=== PATIENT | male | born 1935 | race Caucasian/White ===

== ENCOUNTER 2017-09-24 16:41 | Inpatient (IN) ==
[2017-09-24] MEDS ORDERED: 0.9 % Sodium Chloride 1,000 ML IVC ONE ×2 (16:51→18:26)
--- NOTE | 2017-09-24 17:06 | Emergency Department Note ---
Disposition Clinical Impression: Cough Hypotension Qualifiers: Hypotension type: unspecified hypotension type Qualified Code(s): I95.9 - Hypotension, unspecified Disposition: Still a Patient General Adult HPI - General Stated complaint: fam says altered, cough Time Seen by Provider: 09/24/17 16:42 Source: patient, EMS - History of Present Illness Pain Scale: 0 - Related Data Home Medications Medication Instructions Recorded Confirmed Acetaminophen [Tylenol] 03/07/15 03/07/15 Allopurinol [Zyloprim 100 MG] 03/07/15 03/07/15 Aspirin [Aspirin] 03/07/15 03/07/15 Atorvastatin [Lipitor] 80 mg PO HS 03/07/15 03/07/15 Cyanocobalamin (B-12) [Vitamin B12] 03/07/15 03/07/15 Docusate [Colace] 03/07/15 03/07/15 Enoxaparin [Lovenox] 03/07/15 03/07/15 HYDROcodone/Acet 5-217 mg/10mL 03/07/15 03/07/15 Ipratropium/Albuterol Neb 03/07/15 03/07/15 Levofloxacin [Levaquin] 03/07/15 03/07/15 Metoprolol [Lopressor] 03/07/15 03/07/15 Multivitamin 03/07/15 03/07/15 Potassium Chloride [Potassium 03/07/15 03/07/15 Chloride] Primidone [Mysoline] 03/07/15 03/07/15 Spironolactone [Aldactone] 03/07/15 03/07/15 Previous Rx's Medication Instructions Recorded Albuterol Sulfate [Albuterol 2 puff IH Q4HR #1 hfa.aer.ad 03/27/17 Inhaler] PredniSONE [Deltasone] 40 mg PO QDPC #10 tablet 03/27/17 Allergies Allergy/AdvReac Type Severity Reaction Status Date / Time morphine Allergy Itching Verified 08/05/15 23:25 naproxen [From Aleve] Allergy Itching Verified 08/05/15 23:25 Past Medical History - Past Medical History Medical history: Reports: asthma, coronary artery disease, hyperlipidemia, hypertension Surgical history: Reports: orthopedic, other Psychiatric history: Reports: no psych history - Social History Smoking Status: Former smoker Smokeless Tobacco Status: No Alcohol use: Reports: unknown Drug use: Reports: none Physical Exam - General General appearance: alert, in no apparent distress Course Vital Signs Temperature 97.6 F 09/24/17 16:44 Pulse Rate 64 09/24/17 16:44 Respiratory Rate 16 09/24/17 16:44 Blood Pressure 91/55 09/24/17 16:44 O2 Sat by Pulse Oximetry 95 09/24/17 16:44 Temperature 97.6 F 09/24/17 16:44 Pulse Rate 64 09/24/17 16:44 Respiratory Rate 16 09/24/17 16:44 Blood Pressure 91/55 09/24/17 16:44 O2 Sat by Pulse Oximetry 95 09/24/17 16:44 Oxygen Delivery Oxygen Delivery Room Air Medical Decision Making - Lab Data Lab Results 09/24/17 Range/Units 16:56 POC Glucose 115 H (70-99) mg/dL Attestation Statement - Attestation Attestation: I examined this patient and my medical decision-making was reviewed with the Resident Physician. I agree with the documented findings, disposition and treatment plan as described except to the extent set forth below. 81 year old male presetns to the ED with compalints of altered mental status per family and cough. PAtient states that feels like he has phlegm stuck in his throat that he cannot cough up. He is hypotensive on arrival although appears to be mentating well. senior living and patietn and EMS state that he is at baseline for his mental status. urine does have a foul smell. WE will do a sepsis workup on patinet for altered mental status.
[2017-09-24 17:20] LABS: Basophils % 0.2 %; Eosinophils # 0.1 K/mcL (0.0-0.6); Eosinophils % 0.7 %; Hematocrit 35.8 % (37.5-50.1); Hemoglobin 11.7 g/dL (12.9-16.9); Immature Granulocytes % 0.7 % (0-4); Lymphocytes # 1.3 K/mcL (0.6-4.6); Lymphocytes % 8.2 %; Mean Corpuscular HGB Conc 32.7 g/dL (31.6-35.5); Mean Corpuscular Hemoglobin 34.3 pg (28.0-33.3); Mean Platelet Volume 10.5 fL (9.4-12.4); Monocytes # 1.6 K/mcL (0.0-1.3); Monocytes % 9.5 %; Neutrophils # 13.3 K/mcL (1.6-8.9); Platelet Count 124 K/mcL (140-400); Red Blood Count 3.41 M/mcL (4.19-5.50); Red Cell Distribution Width 16.5 % (11.5-14.5); Segmented Neutrophils % 80.7 %
[2017-09-24] MEDS ORDERED: Isovue-370 500 ML INFUS..BTL IV ONE (17:30)
[2017-09-24 17:45] LABS: BUN/Creatinine Ratio 22 (6-26); Blood Urea Nitrogen 30 mg/dL (8-23); Calcium 8.5 mg/dL (8.6-10.3); Carbon Dioxide 29 mEq/L (23-29); Chloride 105 mEq/L (98-107); Glucose 116 mg/dL (70-105); Osmolality,Calculated 297 (280-300); Potassium 4.7 mEq/L (3.5-5.1); Sodium 140 mEq/L (136-145); eGFR For African Americans > 60 (> 60); eGFR For Non-African Americans 51 (> 60)
[2017-09-24 17:50] LABS: Troponin I 0.07 ng/mL (< 0.04)
[2017-09-24] MEDS ORDERED: Aspirin 81 MG TAB.CHEW PO ONE (17:50)
[2017-09-24] MEDS ORDERED: methylPREDNISolone 125 MG/2 ML VIAL IVP ONE (17:50)
[2017-09-24 18:01] LABS: Albumin 3.6 g/dL (3.5-5.7); Albumin/Globulin Ratio 1.4 (1.1-2.2); Bilirubin,Direct 0.1 mg/dL (0.0-0.2); Bilirubin,Indirect 0.2 mg/dL (0.0-1.2); Bilirubin,Total 0.3 mg/dL (0.3-1.0); Globulin 2.6 g/dL (2.4-3.5); Total Protein 6.2 g/dL (6.4-8.9)
[2017-09-24] MEDS ORDERED: Piperacillin/Tazobactam 3.375 GM in 0.9 % Sodium Chloride Mini Bag 100 ML IVPB ONE (18:26)
--- NOTE | 2017-09-24 18:31 | Emergency Department Note ---
Disposition Clinical Impression: Elevated troponin, Cystitis Sepsis Qualifiers: Sepsis type: sepsis due to unspecified organism Qualified Code(s): A41.9 - Sepsis, unspecified organism Pneumonia Qualifiers: Pneumonia type: due to unspecified organism Laterality: unspecified laterality Lung location: unspecified part of lung Qualified Code(s): J18.9 - Pneumonia, unspecified organism Altered mental status Qualifiers: Altered mental status type: unspecified Qualified Code(s): R41.82 - Altered mental status, unspecified Disposition: Admitted As Inpatient Condition: Fair Time of Disposition: 20:37 General Adult HPI - General Chief complaint: ED Upper Respiratory Infection Stated complaint: fam says altered, cough Time Seen by Provider: 09/24/17 16:42 Source: patient, EMS Mode of arrival: EMS Limitations: altered mental status Nursing Notes Reviewed: Yes Vital Signs Reviewed: Yes - History of Present Illness HPI Narrative: Patient is an 81-year-old male who presents to [facility] ED with a chief complaint of altered mental status. Patient came from a nursing facility per family request that patient be evaluated for altered mental status. Upon arrival, patient's only complaint is not feeling good and a cough. His initial blood pressure was low with a systolic of 90. This was repeated and found to be accurate. Patient denies any chest pain, difficulty breathing, abdominal pain, problems with urination or bowel movements. Patient is extremely slow with his speech and seems to have some difficulty with word finding. When talking with the granddaughter who is his power of ip attorney, she states that this is new for him and that he is normally able to converse without difficulty. States he also had a fall about a week and a half ago and was found to have some ruptured disks. States he has had some difficulty walking ever since then. Onset (ago): unknown Pain Scale: 0 Improves with: nothing Worsens with: nothing Associated symptoms: Reports: confusion, cough, malaise, weakness. Denies: chest pain, fever/chills, nausea/vomiting, shortness of breath Treatments Prior to Arrival: none - Related Data Home Medications Medication Instructions Recorded Confirmed Allopurinol [Zyloprim 100 MG] 100 mg PO BID 09/24/17 09/24/17 Atorvastatin Calcium [Lipitor] 80 mg PO HS 09/24/17 09/24/17 Furosemide [Lasix] 40 mg PO BID 09/24/17 09/24/17 Lisinopril [Zestril] 10 mg PO DAILY 09/24/17 09/24/17 Loratadine [Allergy Relief] 10 mg PO DAILY 09/24/17 09/24/17 Magnesium Hydroxide [Milk of 2,400 mg PO DAILY PRN 09/24/17 09/24/17 Magnesia] Metoprolol [Lopressor] 25 mg PO BID 09/24/17 09/24/17 Polyethylene Glycol 3350 [MiraLAX 1 scoop PO DAILY 09/24/17 09/24/17 Powder Bulk 17.9 Oz] Primidone [Mysoline] 250 mg PO BID 09/24/17 09/24/17 Sennosides [Senokot] 8.6 mg PO BID 09/24/17 09/24/17 Spironolactone [Aldactone] 50 mg PO BID 09/24/17 09/24/17 Tamsulosin HCl [Flomax] 0.4 mg PO DAILY 09/24/17 09/24/17 Allergies Allergy/AdvReac Type Severity Reaction Status Date / Time morphine Allergy Itching Verified 08/05/15 23:25 naproxen [From Aleve] Allergy Itching Verified 08/05/15 23:25 Limitations: ROS unobtainable due to patients medical condition Past Medical History - Past Medical History Attestation: Yes The following information was validated with the patient. Source: patient Medical history: Reports: asthma, coronary artery disease, hyperlipidemia, hypertension Surgical history: Reports: orthopedic, other Psychiatric history: Reports: no psych history - Social History Smoking Status: Former smoker Smokeless Tobacco Status: No Alcohol use: Reports: unknown Drug use: Reports: none Physical Exam - General Limitations: altered mental status General appearance: alert, in no apparent distress - Head Head exam: atraumatic, normocephalic, normal inspection - Eye Eye exam: Present: normal appearance, PERRL, EOMI - ENT ENT exam: normal exam, normal oropharynx, mucous membranes moist - Neck Neck exam: Present: normal inspection - Chest Chest inspection: Present: normal inspection, symmetric chest wall rise - Respiratory Respiratory exam: Present: normal lung sounds bilaterally - Cardiovascular Cardiovascular exam: Present: regular rate, normal rhythm, normal heart sounds - Abdominal Exam Abdominal exam: Present: soft, Non-Tender. Absent: tenderness, distention, guarding, rebound, rigidity - Extremities Exam Extremities exam: Present: normal inspection, full ROM. Absent: tenderness, pedal edema - Neurological Exam Neurological exam: Present: alert - Expanded Neurological Exam Speech: Present: expressive aphasia Cranial nerves: EOM function (II, III, IV, ): Normal Motor strength - LUE: 4/5 Motor strength - RUE: 4/5 Motor strength - LLE: 4/5 Motor strength - RLE: 4/5 Coma Scale Eye Opening: Spontaneous Coma Scale Motor Response: Obeys Commands Coma Scale Verbal Response: Confused Coma Scale Total: 14 - Psychiatric Psychiatric exam: Present: normal affect, normal mood - Skin Skin exam: Present: warm, dry, intact, normal color Course Course Narrative: Patient seen and examined. Altered mental status per family concern. Per EMS report, patient was at his baseline mental status. However after further discussing with the family members, seems that patient is not normally so slow at talking. Since his blood pressure was low, a sepsis/AMS workup was initiated. Blood cultures, urinalysis and chest x-ray and CT head all ordered. While trying to obtain the urine analysis, there was a traumatic Aguilera placement patient had some blood come out. Since we are also evaluating for source of infection, CT abdomen and pelvis as well as CT of the chest was added. - Reevaluation(s) Reevaluation #1: Chest CT showed signs of pneumonia and also cystitis. Urine analysis shows no signs of bacteria but does have pyuria. We will send a urine culture. Vancomycin, Zosyn and Levaquin started. We will admit for altered mental status , elevated troponin, pneumonia, sepsis. I discussed with hospitalist Dr. Hayes who has accepted patient for admission. Time: 20:32 Vital Signs Temperature 97.6 F 09/24/17 16:44 Pulse Rate 64 09/24/17 16:44 Respiratory Rate 16 09/24/17 16:44 Blood Pressure 91/55 09/24/17 16:44 O2 Sat by Pulse Oximetry 95 09/24/17 16:44 Temperature 97.6 F 09/24/17 16:44 Pulse Rate 64 09/24/17 16:44 Respiratory Rate 16 09/24/17 16:44 Blood Pressure 91/55 09/24/17 16:44 O2 Sat by Pulse Oximetry 95 09/24/17 16:44 Oxygen Delivery Oxygen Delivery Room Air Medical Decision Making - Medical Records Medical records reviewed: Yes I reviewed the patient's medical records. - Lab Data Lab results reviewed: Yes I reviewed the patient's lab results. Result diagrams: 09/24/17 17:04 09/24/17 17:04 Lab Results 09/24/17 09/24/17 09/24/17 Range/Units 16:56 17:04 17:04 WBC 16.4 H (4.3-11.1) K/mcL RBC 3.41 L (4.19-5.50) M/mcL Hgb 11.7 L (12.9-16.9) g/dL Hct 35.8 L (37.5-50.1) % MCV 105.0 H (83.0-100.0) fL MCH 34.3 H (28.0-33.3) pg MCHC 32.7 (31.6-35.5) g/dL RDW 16.5 H (11.5-14.5) % Plt Count 124 L (140-400) K/mcL MPV 10.5 (9.4-12.4) fL Immature Gran % 0.7 (0-4) % Seg Neutrophils % 80.7 % Lymphocytes % 8.2 % Monocytes % 9.5 % Eosinophils % 0.7 % Basophils % 0.2 % Neutrophils # 13.3 H (1.6-8.9) K/mcL Lymphocytes # 1.3 (0.6-4.6) K/mcL Monocytes # 1.6 H (0.0-1.3) K/mcL Eosinophils # 0.1 (0.0-0.6) K/mcL Basophils # 0.0 (0.0-0.2) K/mcL Sodium 140 (136-145) mEq/L Potassium 4.7 (3.5-5.1) mEq/L Chloride 105 (98-107) mEq/L Carbon Dioxide 29 (23-29) mEq/L BUN 30 H (8-23) mg/dL Creatinine 1.35 H (0.70-1.30) mg/dL Est GFR ( Amer) > 60 (> 60) Est GFR (Non-Af Amer) 51 L (> 60) BUN/Creatinine Ratio 22 (6-26) Glucose 116 H (70-105) mg/dL POC Glucose 115 H (70-99) mg/dL Calculated Osmolality 297 (280-300) Lactic Acid (0.5-2.2) mmol/L Calcium 8.5 L (8.6-10.3) mg/dL Total Bilirubin (0.3-1.0) mg/dL Direct Bilirubin (0.0-0.2) mg/dL Indirect Bilirubin (0.0-1.2) mg/dL AST (13-39) Units/L ALT (7-52) Units/L Alkaline Phosphatase (34-104) Units/L Troponin I 0.07 H* (< 0.04) ng/mL Serum Total Protein (6.4-8.9) g/dL Albumin (3.5-5.7) g/dL Globulin (2.4-3.5) g/dL Albumin/Globulin Ratio (1.1-2.2) 09/24/17 09/24/17 Range/Units 17:04 17:04 WBC (4.3-11.1) K/mcL RBC (4.19-5.50) M/mcL Hgb (12.9-16.9) g/dL Hct (37.5-50.1) % MCV (83.0-100.0) fL MCH (28.0-33.3) pg MCHC (31.6-35.5) g/dL RDW (11.5-14.5) % Plt Count (140-400) K/mcL MPV (9.4-12.4) fL Immature Gran % (0-4) % Seg Neutrophils % % Lymphocytes % % Monocytes % % Eosinophils % % Basophils % % Neutrophils # (1.6-8.9) K/mcL Lymphocytes # (0.6-4.6) K/mcL Monocytes # (0.0-1.3) K/mcL Eosinophils # (0.0-0.6) K/mcL Basophils # (0.0-0.2) K/mcL Sodium (136-145) mEq/L Potassium (3.5-5.1) mEq/L Chloride (98-107) mEq/L Carbon Dioxide (23-29) mEq/L BUN (8-23) mg/dL Creatinine (0.70-1.30) mg/dL Est GFR ( Amer) (> 60) Est GFR (Non-Af Amer) (> 60) BUN/Creatinine Ratio (6-26) Glucose (70-105) mg/dL POC Glucose (70-99) mg/dL Calculated Osmolality (280-300) Lactic Acid 1.2 (0.5-2.2) mmol/L Calcium (8.6-10.3) mg/dL Total Bilirubin 0.3 (0.3-1.0) mg/dL Direct Bilirubin 0.1 (0.0-0.2) mg/dL Indirect Bilirubin 0.2 (0.0-1.2) mg/dL AST 33 (13-39) Units/L ALT 19 (7-52) Units/L Alkaline Phosphatase 92 (34-104) Units/L Troponin I (< 0.04) ng/mL Serum Total Protein 6.2 L (6.4-8.9) g/dL Albumin 3.6 (3.5-5.7) g/dL Globulin 2.6 (2.4-3.5) g/dL Albumin/Globulin Ratio 1.4 (1.1-2.2) - Radiology Data Radiology results reviewed: Yes I reviewed the patient's radiology results. Chest X-Ray 09/24/17 16:46 IMPRESSION: 1. Cardiomegaly. 2. Calcific atherosclerosis aorta. 3. Senescent pulmonary changes. No focal consolidation is evident. D/ / Saulo Barreto / Saulo Barreto Interpreting Provider: Saulo Barreto Head CT 09/24/17 16:52 IMPRESSION: No acute intracranial abnormality. D/ / Saulo Barreto / Saulo Barreto Interpreting Provider: Saulo Barreto Abdomen/Pelvis CT 09/24/17 17:30 IMPRESSION: Bladder wall appears thickened and inflamed. Correlate with urinalysis to assess for infectious cystitis. Diverticulosis. No evidence of acute diverticulitis. Small to moderate pericardial effusion Bronchial wall thickening within the lower lobes as well as mild patchy opacity in the left lower lobe. Atelectasis versus developing infection. D/ / Radha Hicks MD / Radha Hicks MD Interpreting Provider: Radha Hicks MD Chest CT 09/24/17 18:11 IMPRESSION: 1. Left lower lobe consolidation, compatible with pneumonia. 2. Moderate pericardial effusion. 3. Severe coronary artery calcification. 4. Calcified pleural plaque could relate to prior asbestos exposure. D/ / Jerry Magaña MD / Jerry Magaña MD Interpreting Provider: Jerry Magaña MD - EKG Data EKG #1 EKG attestation: Yes I reviewed and interpreted this EKG. EKG results narrative: EKG done at 1649 shows normal sinus rhythm with a rate of [address] elevation or depression. Normal axis. Unchanged from prior EKG done 2016.
[2017-09-24 18:46] LABS: Bilirubin,Urine Small (Negative); Blood,Urine Large (Negative); Clarity,Urine Cloudy (Clear); Color,Urine Dark Yellow (Yellow); Glucose,Urine (UA) Normal (Normal); Ketones,Urine Negative (Negative); Leukocyte Esterase,Urine Large (Negative); Nitrite,Urine Negative (Negative); Protein,Urine 30 mg/dL (Neg-Trace); Specific Gravity,Urine > 1.030 (1.010-1.025); Urobilinogen,Urine Normal (Normal)
[2017-09-24 18:48] LABS: Bacteria,Urine None Seen per hpf (None-Few); Hyaline Casts,Urine Moderate per lpf (None-Few); RBC,Urine 50-100 per hpf (0-3); Squamous Epithelial Cell,Urine Many per lpf (None-Few); WBC,Urine TNTC per hpf (0-3)
[2017-09-24 19:02] LABS: Amorphous Sediment,Urine Few (Few)
[2017-09-24] MEDS ORDERED: Levofloxacin 750 MG/150 ML 750 MG/150 ML BAG IVPB ONE (19:08)
[2017-09-24] MEDS ORDERED: MOM Conc 10 ML UD.LIQ PO PRN (21:34)
[2017-09-24] MEDS ORDERED: Naloxone 0.4 MG/ML INJ IVP PRN (21:38)
[2017-09-24] MEDS ORDERED: 0.9 % Sodium Chloride 1,000 ML IVC SCH (21:45)
--- NOTE | 2017-09-24 22:18 | Internal Med History&Physical ---
Date of Encounter: 09/24/17 Time of Encounter: 21:40 Internal Medicine - H&P: HPI Chief complaint: shortness of breath/change in mental status Admitted From: Long-term Nursing Facility Plans for Post Hospital Care: Transfer Skilled Nursing Care History of present illness: Mr. Kelly is a 81 year old male with PMH of CHF, HTN, HLD, CAD who was brought to the ER for evaluation of shortness of breath and change in mental status. Pt is currently AAO x2 due to which information is obtained from the daughter ( Gricel Kelly-POA) present at bedside. As per daughter, she received a call from her father earlier today stating he is having difficulty breathing and would like to go to the hospital. She states at baseline he is AAO x 3, however has chronic speech deficit with slow speech. Upon arrival to the ER, he was noted to be hypotensive and hypoxic. He received one fluid bolus to which he responded well and was placed on O2 supplementation. ER workup was positive for LLL PNA, ALEKSANDRA, and mild TNI elevation. Pt received empiric IV abx. During my evaluation, pt is able to converse and reports of feeling better since his arrival to the hospital. As per daughter, pt's mental status has improved and is getting closer to his baseline mental status. Daughter reports of being the POA (Gricel Kelly [phone]), states the pt has a living will and he wishes to be DNR. She will bring the copy of the living will in am. Past Med Surg Social Fam HX - Past Medical History Medical history: asthma, coronary artery disease, hyperlipidemia, hypertension Psychiatric history: no psych history - Past Surgical History Surgical History: orthopedic, other - Social History Smoking Status: Former smoker Smokeless Tobacco Status: No Alcohol use: unknown Drug use: none Internal Medicine - H&P: Meds Allopurinol [Zyloprim 100 MG] 100 mg PO BID 09/24/17 [History] Atorvastatin Calcium [Lipitor] 80 mg PO HS 09/24/17 [History] Furosemide [Lasix] 40 mg PO BID 09/24/17 [History] Lisinopril [Zestril] 10 mg PO DAILY 09/24/17 [History] Loratadine [Allergy Relief] 10 mg PO DAILY 09/24/17 [History] Magnesium Hydroxide [Milk of Magnesia] 2,400 mg PO DAILY PRN 09/24/17 [History] Metoprolol [Lopressor] 25 mg PO BID 09/24/17 [History] Polyethylene Glycol 3350 [MiraLAX Powder Bulk 17.9 Oz] 1 scoop PO DAILY [History] Primidone [Mysoline] 250 mg PO BID 09/24/17 [History] Sennosides [Senokot] 8.6 mg PO BID 09/24/17 [History] Spironolactone [Aldactone] 50 mg PO BID 09/24/17 [History] Tamsulosin HCl [Flomax] 0.4 mg PO DAILY 09/24/17 [History] 3 Allergy/AdvReac Type Severity Reaction Status Date / Time morphine Allergy Itching Verified 08/05/15 23:25 naproxen [From Aleve] Allergy Itching Verified 08/05/15 23:25 All Systems PM: A 10-system review of systems was performed and is negative for pertinent findings except as documented above in the HPI. - Constitutional Constitutional: as per HPI - Constitutional Vitals: Temp Pulse Resp BP Pulse Ox 97.7 F 79 20 145/79 91 09/24/17 21:50 09/24/17 21:50 09/24/17 21:50 09/24/17 21:50 09/24/17 21:50 General appearance: Present: cooperative, A&O X 2, no acute distress - Head Head exam: Present: atraumatic, normocephalic - Eye Eye exam: Present: conjuntiva pink, sclera anicteric - Respiratory Respiratory exam: Absent: respiratory distress, tachypnea (diffuse rhonchi) - Cardiovascular Cardiovascular exam: Present: RRR, +S1, +S2. Absent: diastolic murmur, gallop, rubs, systolic murmur - GI/Abdominal GI/Abdominal exam: Present: normal bowel sounds, soft, no peritoneal signs. Absent: distended, tenderness - Extremities Exam Extremities exam: Present: warm, radial pulses palpable and symmetrical (trace pitting edema in distal b/l LE ). Absent: calf tenderness - Neurological Exam Neurological exam: Present: alert Internal Med - H&P Results - Labs CBC & Chem 7: 09/24/17 17:04 09/24/17 17:04 - Assessment and plan (1) Altered mental status Current Visit: Yes Status: Acute Assessment and plan: Likely secondary to underlying infectious etiology Clinically improving but not at baseline as per family's reports CT findings consistent with LLL PNA, cystitis, and moderate pericardial effusion will continue broad spectrum IV abx f/u blood and urine cx continue O2 supplementation will closely monitor respiratory status 2D echo consider cardiology evaluation based on echo results maintain fall precautions Qualifiers: Altered mental status type: unspecified Qualified Code(s): R41.82 - Altered mental status, unspecified (2) HCAP (healthcare-associated pneumonia) Current Visit: Yes Status: Acute Assessment and plan: as listed above (3) Dyspnea Current Visit: Yes Status: Acute Assessment and plan: secondary to PNA continue broad spectrum IV abx O2 supplementation will obtain respiratory viral panel closely monitor respiratory status Qualifiers: Dyspnea type: shortness of breath Qualified Code(s): R06.02 - Shortness of breath; R06.00 - Dyspnea, unspecified; R06.01 - Orthopnea (4) ALEKSANDRA (acute kidney injury) Current Visit: Yes Status: Acute Assessment and plan: Likely secondary to the underlying infectious etiology and initial hypotension noted upon arrival to the ER BP within acceptable range at this time will hold home dose of Lasix, LIsinopril, and spironolactone avoid nephrotoxin agents renally dose abx will closely monitor renal function consider nephrology evaluation, if renal function further deteriorates. (5) Cystitis Current Visit: Yes Status: Acute Assessment and plan: CT findings consistent with cystitis pt denies any dysuria continue broad spectrum IV abx (6) Pericardial effusion Current Visit: Yes Status: Acute Assessment and plan: CT chest reported moderate pericardial effusion likely secondary to underlying infectious etiology f/u 2D echo will closely monitor (7) Elevated troponin Current Visit: Yes Status: Acute Assessment and plan: likely demand ischemia in the setting of acute infection will trend serial tni f/u 2D echo pt received a dose of ASA in the ER continue home dose of statin, BB (8) CHF (congestive heart failure) Current Visit: Yes Status: Chronic Assessment and plan: holding lasix at this time due to ALEKSANDRA will closely monitor for signs of volume overload monitor daily weight, I/OS Qualifiers: Heart failure type: unspecified Heart failure chronicity: chronic Qualified Code(s): I50.9 - Heart failure, unspecified (9) Hypertension Current Visit: Yes Status: Chronic Assessment and plan: BP within acceptable range continue home meds Qualifiers: Hypertension type: essential hypertension Qualified Code(s): I10 - Essential (primary) hypertension (10) HLD (hyperlipidemia) Current Visit: Yes Status: Chronic Assessment and plan: continue home statin Qualifiers: Hyperlipidemia type: unspecified Qualified Code(s): E78.5 - Hyperlipidemia , unspecified (11) DVT prophylaxis Current Visit: Yes Status: Acute Assessment and plan: heparin SQ - Time Spent With Patient Total time spent is greater than 50% in coordination of care (as documented) at patient's floor/unit and/or counseling patient:
[2017-09-24] MEDS: Ipratropium/Albuterol Neb 3 ML IH PRN (23:23)
[2017-09-24 23:35] LABS: Adenovirus Not Detected (Not Detect); Bordetella Pertussis Not Detected (Not Detect); Chlamydophila pneumoniae Not Detected (Not Detect); Coronavirus 229E Not Detected (Not Detect); Coronavirus HKU1 Not Detected (Not Detect); Coronavirus NL63 Not Detected (Not Detect); Coronavirus OC43 Not Detected (Not Detect); Human Metapneumovirus Not Detected (Not Detect); Human Rhinovirus/Enterovirus Not Detected (Not Detect); Influenza A Subtype 2009 H1 Not Detected (Not Detect); Influenza A Untypeable Not Detected (Not Detect); Influenza B Not Detected (Not Detect); Mycoplasma pneumoniae Not Detected (Not Detect); Parainfluenza Virus 1 Not Detected (Not Detect); Parainfluenza Virus 2 Not Detected (Not Detect); Parainfluenza Virus 3 Not Detected (Not Detect); Parainfluenza Virus 4 Not Detected (Not Detect); Respiratory Syncytial Virus Not Detected (Not Detect)
[2017-09-25] MEDS: GuaiFENesin/Dextromethorphan TABLET PO SCH ×3 (03:06→20:11)
[2017-09-25 04:43] LABS: Basophils % 0.1 %; Hematocrit 33.8 % (37.5-50.1); Hemoglobin 10.8 g/dL (12.9-16.9); Immature Granulocytes % 0.6 % (0-4); Lymphocytes # 0.4 K/mcL (0.6-4.6); Lymphocytes % 3.4 %; Mean Corpuscular Hemoglobin 33.9 pg (28.0-33.3); Mean Platelet Volume 11.2 fL (9.4-12.4); Monocytes # 0.2 K/mcL (0.0-1.3); Neutrophils # 10.9 K/mcL (1.6-8.9); Platelet Count 116 K/mcL (140-400); Red Blood Count 3.19 M/mcL (4.19-5.50); Red Cell Distribution Width 16.1 % (11.5-14.5); Segmented Neutrophils % 93.9 %
[2017-09-25 05:00] LABS: BUN/Creatinine Ratio 25 (6-26); Blood Urea Nitrogen 32 mg/dL (8-23); Calcium 7.9 mg/dL (8.6-10.3); Carbon Dioxide 27 mEq/L (23-29); Chloride 108 mEq/L (98-107); Chol/HDL Ratio 2.8 (0-4.9); Cholesterol 92 mg/dL (< 200); Glucose 228 mg/dL (70-105); HDL Cholesterol 33 mg/dL (40-59); LDL Cholesterol,Calculated 49 mg/dL (0-99); Magnesium 2.1 mg/dL (1.6-2.6); Osmolality,Calculated 306 (280-300); Phosphorous 4.1 mg/dL (2.7-4.5); Potassium 4.4 mEq/L (3.5-5.1); Sodium 141 mEq/L (136-145); Triglycerides 50 mg/dL (< 150); eGFR For African Americans > 60 (> 60); eGFR For Non-African Americans 53 (> 60)
[2017-09-25] MEDS: *HR* Heparin 5,000 UNIT/ML VIAL SQ SCH ×2 (06:12→16:46)
[2017-09-25] MEDS ORDERED: Piperacillin/Tazobactam 3.375 GM in 0.9 % Sodium Chloride Mini Bag 100 ML IVPB SCH (08:00)
[2017-09-25] MEDS: Loratadine 10 MG TABLET PO SCH (08:13)
[2017-09-25] MEDS: Sennosides 8.6 MG TABLET PO SCH ×2 (08:13→20:11)
--- NOTE | 2017-09-25 09:42 | Internal Med Progress Note ---
Date of Encounter: 09/25/17 Time of Encounter: 09:00 - Assessment and plan (1) Altered mental status Current Visit: Yes Status: Acute Assessment and plan: Mostly due to toxic encephalopathy with PNA Clinically improving but not at baseline will continue broad spectrum IV abx f/u blood and urine cx continue O2 supplementation Qualifiers: Altered mental status type: unspecified Qualified Code(s): R41.82 - Altered mental status, unspecified (2) HCAP (healthcare-associated pneumonia) Current Visit: Yes Status: Acute Assessment and plan: Mostly bacterial PNA.. also concerned for aspiration iwill educated about aspiration precautions cont broad sepc abx.. will deescalate them in AM depending on how he responds in next 24hrs (3) Elevated troponin Current Visit: Yes Status: Acute Assessment and plan: Most likely due to demand ischemia in the setting of acute infection and pericardial effusion will trend serial trop f/u 2D echo continue home dose of statin, BB (4) Cystitis Current Visit: Yes Status: Acute Assessment and plan: CT findings consistent with cystitis pt denies any dysuria continue broad spectrum IV ab will f/u on urine cx (5) Dyspnea Current Visit: Yes Status: Acute Assessment and plan: secondary to PNA continue broad spectrum IV abx O2 supplementation Respiratory viral panel - Negative closely monitor respiratory status Qualifiers: Dyspnea type: shortness of breath Qualified Code(s): R06.02 - Shortness of breath; R06.00 - Dyspnea, unspecified; R06.01 - Orthopnea (6) Pericardial effusion Current Visit: Yes Status: Acute Assessment and plan: CT chest reported moderate pericardial effusion f/u 2D echo No signs of cardiac tamponade will closely monitor (7) CHF (congestive heart failure) Current Visit: Yes Status: Chronic Assessment and plan: holding lasix at this time due to ALEKSANDRA will closely monitor for signs of volume overload monitor daily weight, I/OS Qualifiers: Heart failure type: unspecified Heart failure chronicity: chronic Qualified Code(s): I50.9 - Heart failure, unspecified (8) ALEKSANDRA (acute kidney injury) Current Visit: Yes Status: Acute Assessment and plan: Likely secondary to the underlying infectious etiology and initial hypotension noted upon arrival to the ER BP within acceptable range at this time will hold home dose of Lasix, LIsinopril, and spironolactone avoid nephrotoxin agents renally dose abx Improving He might have CKD-2 (9) Hypertension Current Visit: Yes Status: Chronic Assessment and plan: BP within acceptable range continue home meds Qualifiers: Hypertension type: essential hypertension Qualified Code(s): I10 - Essential (primary) hypertension (10) HLD (hyperlipidemia) Current Visit: Yes Status: Chronic Assessment and plan: continue home statin Qualifiers: Hyperlipidemia type: unspecified Qualified Code(s): E78.5 - Hyperlipidemia , unspecified (11) DVT prophylaxis Current Visit: Yes Status: Acute Assessment and plan: heparin SQ - Time Spent With Patient Total time spent is greater than 50% in coordination of care (as documented) at patient's floor/unit and/or counseling patient: - Subjective Interval history: Mr. Kelly is a 81 year old male with PMH of CHF, HTN, HLD, CAD who was brought to the ER for evaluation of shortness of breath and change in mental status. Upon arrival to the ER, he was noted to be hypotensive and hypoxic. He received one fluid bolus to which he responded well and was placed on O2 supplementation. ER workup was positive for LLL PNA, ALEKSANDRA, and mild TNI elevation. Pt received empiric IV abx. Pt was admitted in the hospital and started him on empirical abx. He is alert, wake and oriented to self, place and person today. Denied any CP. Still has some SOB and STEEL. - Constitutional Vitals: Temp Pulse Resp BP Pulse Ox 97.7 F 88 18 125/64 94 09/25/17 07:06 09/25/17 07:06 09/25/17 07:06 09/25/17 07:06 09/25/17 08:20 General appearance: Present: cooperative, A&O X 2, no acute distress - Head Head exam: Present: atraumatic, normal inspection - Neck Neck exam general surgery: Present: supple - Respiratory Respiratory exam: Present: decreased breath sounds, wheezes. Absent: rales, respiratory distress, rhonchi - Cardiovascular Cardiovascular exam: Present: RRR, +S1, +S2. Absent: tachycardia - GI/Abdominal GI/Abdominal exam: Present: normal bowel sounds, soft. Absent: rebound, rigid, tenderness - Extremities Exam Extremities exam: Absent: calf tenderness, pedal edema, tenderness - Back Exam Back exam: Absent: CVA tenderness (L), CVA tenderness (R) - Neurological Exam Neurological exam: Present: alert, altered - Psychiatric Psychiatric exam: Present: normal affect, normal mood Internal Medicine: Result - Labs CBC & Chem 7: 09/25/17 02:43 09/25/17 02:43 Labs: Short CBC 09/25/17 Range/Units 02:43 WBC 11.6 H (4.3-11.1) K/mcL Hgb 10.8 L (12.9-16.9) g/dL Hct 33.8 L (37.5-50.1) % Plt Count 116 L (140-400) K/mcL Neutrophils # 10.9 H (1.6-8.9) K/mcL BMP 09/25/17 02:43 Sodium 141 Potassium 4.4 Chloride 108 H Carbon Dioxide 27 BUN 32 H Creatinine 1.29 Glucose 228 H Calcium 7.9 L Consult Discharge Plan - Plan [facility]errals: [facility] [Primary Care Provider] -
[2017-09-25] MEDS: Ipratropium/Albuterol Neb 3 ML IH PRN (10:09)
[2017-09-25] MEDS: Piperacillin/Tazobactam 3.375 GM in 0.9 % Sodium Chloride Mini Bag 100 ML IVPB SCH ×2 (16:47→23:47)
[2017-09-25] MEDS: Acetaminophen 325 MG TABLET PO PRN (19:02)
[2017-09-25] MEDS ORDERED: Aminoglycoside Consult 1 EACH MC ONE (20:47)
[2017-09-26] MEDS: *HR* Heparin 5,000 UNIT/ML VIAL SQ SCH ×2 (06:23→18:30)
[2017-09-26] MEDS ORDERED: Haloperidol Lactate 5 MG/ML VIAL IVP ONE (08:06)
[2017-09-26] MEDS ORDERED: Haloperidol Lactate 5 MG/ML VIAL ONE (08:06)
[2017-09-26] MEDS ORDERED: Haloperidol Lactate 5 MG/ML VIAL IVP PRN (08:17)
[2017-09-26] MEDS: Acetaminophen 325 MG TABLET PO PRN (09:03)
[2017-09-26] MEDS: Piperacillin/Tazobactam 3.375 GM in 0.9 % Sodium Chloride Mini Bag 100 ML IVPB SCH ×3 (09:04→23:58)
[2017-09-26] MEDS: Sennosides 8.6 MG TABLET PO SCH ×2 (09:04→20:11)
[2017-09-26] MEDS: GuaiFENesin/Dextromethorphan TABLET PO SCH ×2 (09:04→20:11)
[2017-09-26] MEDS: Loratadine 10 MG TABLET PO SCH (09:04)
--- NOTE | 2017-09-26 09:17 | Internal Med Progress Note ---
Date of Encounter: 09/26/17 Time of Encounter: 08:00 - Assessment and plan (1) Altered mental status Current Visit: Yes Status: Acute Assessment and plan: Mostly due to toxic encephalopathy with PNA and advanced dementia He became more agitated this morning cont IV Haldol PRN placed him on 4 point restrains.. will reevaluated later also placed him on sitter and fall precautions will continue broad spectrum IV abx Blood cx - no growth so far continue O2 supplementation Qualifiers: Altered mental status type: unspecified Qualified Code(s): R41.82 - Altered mental status, unspecified (2) HCAP (healthcare-associated pneumonia) Current Visit: Yes Status: Acute Assessment and plan: Mostly bacterial PNA.. also concerned for aspiration Will educate about aspiration precautions cont broad sepc abx d/c Vanc (3) Elevated troponin Current Visit: Yes Status: Acute Assessment and plan: Most likely due to demand ischemia in the setting of acute infection and pericardial effusion will trend serial trop 2D echo showed preserved LVEF @ 55-60%, Normal LV size continue home dose of statin, BB (4) Cystitis Current Visit: Yes Status: Acute Assessment and plan: CT findings consistent with cystitis pt denies any dysuria continue broad spectrum IV ab will f/u on urine cx (5) Dyspnea Current Visit: Yes Status: Acute Assessment and plan: secondary to PNA continue broad spectrum IV abx O2 supplementation Respiratory viral panel - Negative closely monitor respiratory status Qualifiers: Dyspnea type: shortness of breath Qualified Code(s): R06.02 - Shortness of breath; R06.00 - Dyspnea, unspecified; R06.01 - Orthopnea (6) Pericardial effusion Current Visit: Yes Status: Acute Assessment and plan: CT chest reported moderate pericardial effusion Reviewed 2D echo showed small size pericardial effusion No signs of cardiac tamponade will closely monitor (7) CHF (congestive heart failure) Current Visit: Yes Status: Chronic Assessment and plan: holding lasix at this time due to ALEKSANDRA will closely monitor for signs of volume overload monitor daily weight, I/OS Qualifiers: Heart failure type: unspecified Heart failure chronicity: chronic Qualified Code(s): I50.9 - Heart failure, unspecified (8) ALEKSANDRA (acute kidney injury) Current Visit: Yes Status: Acute Assessment and plan: Likely secondary to the underlying infectious etiology and initial hypotension noted upon arrival to the ER BP within acceptable range at this time will hold home dose of Lasix, LIsinopril, and spironolactone avoid nephrotoxin agents renally dose abx Improving no labs today He might have CKD-2 (9) Hypertension Current Visit: Yes Status: Chronic Assessment and plan: BP within acceptable range continue home meds Qualifiers: Hypertension type: essential hypertension Qualified Code(s): I10 - Essential (primary) hypertension (10) HLD (hyperlipidemia) Current Visit: Yes Status: Chronic Assessment and plan: continue home statin Qualifiers: Hyperlipidemia type: unspecified Qualified Code(s): E78.5 - Hyperlipidemia , unspecified (11) DVT prophylaxis Current Visit: Yes Status: Acute Assessment and plan: heparin SQ - Time Spent With Patient Total time spent is greater than 50% in coordination of care (as documented) at patient's floor/unit and/or counseling patient: - Subjective Interval history: Mr. Kelly is a 81 year old male with PMH of CHF, HTN, HLD, CAD who was brought to the ER for evaluation of shortness of breath and change in mental status. Upon arrival to the ER, he was noted to be hypotensive and hypoxic. He received one fluid bolus to which he responded well and was placed on O2 supplementation. ER workup was positive for LLL PNA, ALEKSANDRA, and mild TNI elevation. Pt received IV abx. Pt was admitted in the hospital and started him on empirical abx. He is alert, awake, however very agitated and combative this morning. Placed him on 4 point restrains and gave IV Haldol. Currently on 3 lit O2 NC - Constitutional Vitals: Temp Pulse Resp BP Pulse Ox 98.0 F 74 19 151/75 98 09/26/17 06:53 09/26/17 06:53 09/26/17 06:53 09/26/17 06:53 09/26/17 06:53 General appearance: Present: A&O X 1. Absent: cooperative - Head Head exam: Present: atraumatic, normal inspection - Neck Neck exam general surgery: Present: supple - Respiratory Respiratory exam: Present: decreased breath sounds, wheezes (mild). Absent: rales, respiratory distress, rhonchi - Cardiovascular Cardiovascular exam: Present: +S1, +S2, tachycardia. Absent: systolic murmur - GI/Abdominal GI/Abdominal exam: Present: normal bowel sounds, soft. Absent: rebound, rigid, tenderness - Extremities Exam Extremities exam: Absent: calf tenderness, pedal edema, tenderness - Back Exam Back exam: Absent: CVA tenderness (L), CVA tenderness (R) - Neurological Exam Neurological exam: Present: altered - Psychiatric Psychiatric exam: Present: agitated - Skin Skin exam: Absent: rash Internal Medicine: Result - Labs CBC & Chem 7: 09/25/17 02:43 09/25/17 02:43 - Impressions Impressions Echocardiogram 09/25/17 11:30 Impressions: LVEF 55-60%. Normal left ventricular size and systolic function. Normal right ventricular size and function. No significant valvular dysfunction. No pulmonary hypertension. There is no echocardiographic evidence of tamponade physiology. There is a small sized pericardial effusion with pericardial thickening. Left Ventricular Wall Motion: Rest Echo Findings All wall segments showed normal motion. Findings: Study Quality * Technically adequate exam. ECG Findings * Normal sinus rhythm. Left Ventricle * LVEF 55-60%. * Normal LV chamber size, wall thickness and function. * Mild left ventricular diastolic dysfunction. Right Ventricle * Normal right ventricular structure and function. Left Atrium * Normal left atrial size. Right Atrium * Normal right atrial size. Interatrial Septum * Interatrial septum not well evaluated. Aortic Valve * Aortic valve not well visualized. * No aortic regurgitation. * No aortic stenosis. Mitral Valve * Normal mitral valve structure. * Mild mitral regurgitation. Tricuspid Valve * Normal tricuspid valve structure. * Mild tricuspid regurgitation. * No pulmonary hypertension. Pulmonic Valve * Pulmonic valve not well visualized. Aorta * Normally sized aortic root. Pericardium * There is a small pericardial effusion present with pericardial thickening. * There is no echocardiographic evidence of tamponade. IVC * The IVC is not well evaluated. Consult Discharge Plan - Plan [facility]errals: [facility] [Primary Care Provider] -
[2017-09-27] MEDS: *HR* Heparin 5,000 UNIT/ML VIAL SQ SCH ×2 (05:57→19:01)
[2017-09-27 06:44] LABS: BUN/Creatinine Ratio 19 (6-26); Blood Urea Nitrogen 16 mg/dL (8-23); Calcium 8.4 mg/dL (8.6-10.3); Carbon Dioxide 27 mEq/L (23-29); Chloride 112 mEq/L (98-107); Glucose 110 mg/dL (70-105); Osmolality,Calculated 302 (280-300); Potassium 4.3 mEq/L (3.5-5.1); Sodium 145 mEq/L (136-145); eGFR For African Americans > 60 (> 60); eGFR For Non-African Americans > 60 (> 60)
[2017-09-27 06:52] LABS: Basophils % 0.3 %; Eosinophils # 0.3 K/mcL (0.0-0.6); Eosinophils % 3.8 %; Hematocrit 34.5 % (37.5-50.1); Hemoglobin 10.8 g/dL (12.9-16.9); Immature Granulocytes % 0.3 % (0-4); Lymphocytes % 14.1 %; Mean Corpuscular HGB Conc 31.3 g/dL (31.6-35.5); Mean Corpuscular Hemoglobin 33.2 pg (28.0-33.3); Mean Corpuscular Volume 106.2 fL (83.0-100.0); Mean Platelet Volume 10.9 fL (9.4-12.4); Monocytes # 0.6 K/mcL (0.0-1.3); Monocytes % 9.2 %; Platelet Count 133 K/mcL (140-400); Red Blood Count 3.25 M/mcL (4.19-5.50); Segmented Neutrophils % 72.3 %
[2017-09-27] MEDS: Loratadine 10 MG TABLET PO SCH (08:40)
[2017-09-27] MEDS: Piperacillin/Tazobactam 3.375 GM in 0.9 % Sodium Chloride Mini Bag 100 ML IVPB SCH ×2 (08:41→16:14)
[2017-09-27] MEDS: Sennosides 8.6 MG TABLET PO SCH ×2 (08:41→20:29)
[2017-09-27] MEDS: GuaiFENesin/Dextromethorphan TABLET PO SCH ×2 (08:41→20:29)
--- NOTE | 2017-09-27 14:43 | Electrocardiograph Report ---
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
--- NOTE | 2017-09-27 15:19 | Internal Med Progress Note ---
Date of Encounter: 09/27/17 Time of Encounter: 11:00 - Assessment and plan (1) Altered mental status Current Visit: Yes Status: Acute Assessment and plan: Mostly due to toxic encephalopathy with PNA and advanced dementia He is still confused and disoriented talked to pt's daughter and grand daughter at bed side As per the family he had some intermitten behavioral problems due to dementia before however he was very active at assisted living facility. Current AMS is definitely new and pronounced They do not want to give him any Haldol so d/c Haldol Cont fall precautions PT /OT eval Family wanted to send him back [facility] only with home health services, if he really needed supervision care / ECF level care then they will take him home with home health services. will continue broad spectrum IV abx Blood cx - no growth so far continue O2 supplementation Qualifiers: Altered mental status type: unspecified Qualified Code(s): R41.82 - Altered mental status, unspecified (2) HCAP (healthcare-associated pneumonia) Current Visit: Yes Status: Acute Assessment and plan: Mostly bacterial PNA.. also concerned for aspiration Will educate about aspiration precautions cont broad sepc abx d/c Vanc (3) Elevated troponin Current Visit: Yes Status: Acute Assessment and plan: Most likely due to demand ischemia in the setting of acute infection and pericardial effusion 2D echo showed preserved LVEF @ 55-60%, Normal LV size continue home dose of statin, BB (4) Cystitis Current Visit: Yes Status: Acute Assessment and plan: CT findings consistent with cystitis pt denies any dysuria continue broad spectrum IV ab Urine cx growing - E. COli (5) Dyspnea Current Visit: Yes Status: Acute Assessment and plan: secondary to PNA continue broad spectrum IV abx O2 supplementation Respiratory viral panel - Negative closely monitor respiratory status Qualifiers: Dyspnea type: shortness of breath Qualified Code(s): R06.02 - Shortness of breath; R06.00 - Dyspnea, unspecified; R06.01 - Orthopnea (6) Pericardial effusion Current Visit: Yes Status: Acute Assessment and plan: CT chest reported moderate pericardial effusion Reviewed 2D echo showed small size pericardial effusion No signs of cardiac tamponade will closely monitor (7) CHF (congestive heart failure) Current Visit: Yes Status: Chronic Assessment and plan: holding lasix at this time due to ALEKSANDRA will closely monitor for signs of volume overload monitor daily weight, I/OS Qualifiers: Heart failure type: unspecified Heart failure chronicity: chronic Qualified Code(s): I50.9 - Heart failure, unspecified (8) ALEKSANDRA (acute kidney injury) Current Visit: Yes Status: Acute Assessment and plan: Likely secondary to the underlying infectious etiology and initial hypotension noted upon arrival to the ER BP within acceptable range at this time will hold home dose of Lasix, LIsinopril, and spironolactone avoid nephrotoxin agents renally dose abx Improved (9) Hypertension Current Visit: Yes Status: Chronic Assessment and plan: BP within acceptable range continue home meds Qualifiers: Hypertension type: essential hypertension Qualified Code(s): I10 - Essential (primary) hypertension (10) HLD (hyperlipidemia) Current Visit: Yes Status: Chronic Assessment and plan: continue home statin Qualifiers: Hyperlipidemia type: unspecified Qualified Code(s): E78.5 - Hyperlipidemia , unspecified (11) DVT prophylaxis Current Visit: Yes Status: Acute Assessment and plan: heparin SQ - Time Spent With Patient Total time spent is greater than 50% in coordination of care (as documented) at patient's floor/unit and/or counseling patient: - Subjective Interval history: Mr. Kelly is a 81 year old male with PMH of CHF, HTN, HLD, CAD who was brought to the ER for evaluation of shortness of breath and change in mental status. Upon arrival to the ER, he was noted to be hypotensive and hypoxic. He received one fluid bolus to which he responded well and was placed on O2 supplementation. ER workup was positive for LLL PNA, ALEKSANDRA, and mild TNI elevation. Pt received IV abx. Pt was admitted in the hospital and started him on empirical abx. Today he is alert, awake and O to self only. Still looks confused and disoriented. Talked to pt's daughter and grand daughter at bed side. - Constitutional Vitals: Temp Pulse Resp BP Pulse Ox 97.7 F 68 15 157/68 96 09/27/17 11:34 09/27/17 11:34 09/27/17 11:34 09/27/17 11:34 09/27/17 11:34 General appearance: Present: cooperative, A&O X 1, no acute distress - Head Head exam: Present: atraumatic, normal inspection - Neck Neck exam general surgery: Present: supple - Respiratory Respiratory exam: Present: decreased breath sounds. Absent: rales, respiratory distress, rhonchi, wheezes - Cardiovascular Cardiovascular exam: Present: RRR, +S1, +S2. Absent: tachycardia - GI/Abdominal GI/Abdominal exam: Present: normal bowel sounds, soft. Absent: rebound, rigid, tenderness - Extremities Exam Extremities exam: Absent: calf tenderness, pedal edema, tenderness - Back Exam Back exam: Absent: CVA tenderness (L), CVA tenderness (R) - Neurological Exam Neurological exam: Present: alert, altered - Psychiatric Psychiatric exam: Present: anxious Internal Medicine: Result - Labs CBC & Chem 7: 09/27/17 05:54 09/27/17 05:54 Consult Discharge Plan - Plan [facility]errals: [facility] [Primary Care Provider] - ([facility])
[2017-09-27] MEDS: Acetaminophen 325 MG TABLET PO PRN (16:13)
[2017-09-27] MEDS ORDERED: Furosemide 40 MG/4 ML VIAL IVP ONE (18:58)
[2017-09-27] MEDS ORDERED: Furosemide 40 MG/4 ML VIAL ONE (18:59)
[2017-09-28] MEDS: Piperacillin/Tazobactam 3.375 GM in 0.9 % Sodium Chloride Mini Bag 100 ML IVPB SCH ×2 (00:26→08:41)
[2017-09-28] MEDS: *HR* Heparin 5,000 UNIT/ML VIAL SQ SCH ×2 (05:51→17:12)
[2017-09-28 06:50] LABS: BUN/Creatinine Ratio 18 (6-26); Blood Urea Nitrogen 15 mg/dL (8-23); Calcium 8.7 mg/dL (8.6-10.3); Carbon Dioxide 29 mEq/L (23-29); Chloride 110 mEq/L (98-107); Glucose 109 mg/dL (70-105); Osmolality,Calculated 301 (280-300); Potassium 4.3 mEq/L (3.5-5.1); Sodium 145 mEq/L (136-145); eGFR For African Americans > 60 (> 60); eGFR For Non-African Americans > 60 (> 60)
[2017-09-28] MEDS: Loratadine 10 MG TABLET PO SCH (08:40)
[2017-09-28] MEDS: GuaiFENesin/Dextromethorphan TABLET PO SCH ×2 (08:40→20:42)
[2017-09-28] MEDS: Sennosides 8.6 MG TABLET PO SCH ×3 (08:40→21:06)
[2017-09-28] MEDS ORDERED: Furosemide 40 MG TABLET PO SCH (09:45)
[2017-09-28] MEDS ORDERED: amLODIPine 5 MG TABLET PO SCH (15:30)
--- NOTE | 2017-09-28 15:34 | Internal Med Progress Note ---
Date of Encounter: 09/28/17 Time of Encounter: 14:00 - Assessment and plan (1) Altered mental status Current Visit: Yes Status: Acute Assessment and plan: Mostly due to toxic encephalopathy with PNA and advanced dementia He is still confused and disoriented As per the family he had some intermittent behavioral problems due to dementia before however he was very active at assisted living facility. Current AMS is They do not want to give him any Haldol so d/c Haldol Cont fall precautions PT /OT eval Family wanted to send him back [facility] only with home health services, if he really needed supervision care / ECF level care then they will take him home with home health services. Blood cx - no growth so far continue O2 supplementation Switched to PO Abx Augmentin Qualifiers: Altered mental status type: unspecified Qualified Code(s): R41.82 - Altered mental status, unspecified (2) HCAP (healthcare-associated pneumonia) Current Visit: Yes Status: Acute Assessment and plan: Mostly bacterial PNA.. also concerned for aspiration Will educate about aspiration precautions Switched to PO Augmentin (3) Elevated troponin Current Visit: Yes Status: Acute Assessment and plan: Most likely due to demand ischemia in the setting of acute infection and pericardial effusion 2D echo showed preserved LVEF @ 55-60%, Normal LV size continue home dose of statin, BB (4) Cystitis Current Visit: Yes Status: Acute Assessment and plan: CT findings consistent with cystitis pt denies any dysuria continue broad spectrum IV ab Urine cx growing - E. COli (5) Dyspnea Current Visit: Yes Status: Acute Assessment and plan: secondary to PNA continue broad spectrum IV abx O2 supplementation Respiratory viral panel - Negative closely monitor respiratory status Qualifiers: Dyspnea type: shortness of breath Qualified Code(s): R06.02 - Shortness of breath; R06.00 - Dyspnea, unspecified; R06.01 - Orthopnea (6) Pericardial effusion Current Visit: Yes Status: Acute Assessment and plan: CT chest reported moderate pericardial effusion Reviewed 2D echo showed small size pericardial effusion No signs of cardiac tamponade will closely monitor (7) CHF (congestive heart failure) Current Visit: Yes Status: Chronic Assessment and plan: Resumed Lasix at 20mg PO BID Also resumed home med Lisinopril at 20mg d/c Aldactone monitor daily weight, I/OS Qualifiers: Heart failure type: unspecified Heart failure chronicity: chronic Qualified Code(s): I50.9 - Heart failure, unspecified (8) ALEKSANDRA (acute kidney injury) Current Visit: Yes Status: Acute Assessment and plan: Likely secondary to the underlying infectious etiology and initial hypotension noted upon arrival to the ER BP within acceptable range at this time will hold home dose of Lasix, LIsinopril, and spironolactone avoid nephrotoxin agents renally dose abx Improved (9) Hypertension Current Visit: Yes Status: Chronic Assessment and plan: Cont Metoprolol, Lasix and Lisinopril Qualifiers: Hypertension type: essential hypertension Qualified Code(s): I10 - Essential (primary) hypertension (10) HLD (hyperlipidemia) Current Visit: Yes Status: Chronic Assessment and plan: continue home statin Qualifiers: Hyperlipidemia type: unspecified Qualified Code(s): E78.5 - Hyperlipidemia , unspecified (11) DVT prophylaxis Current Visit: Yes Status: Acute Assessment and plan: heparin SQ - Time Spent With Patient Total time spent is greater than 50% in coordination of care (as documented) at patient's floor/unit and/or counseling patient: - Subjective Interval history: Mr. Kelly is a 81 year old male with PMH of CHF, HTN, HLD, CAD who was brought to the ER for evaluation of shortness of breath and change in mental status. Upon arrival to the ER, he was noted to be hypotensive and hypoxic. He received one fluid bolus to which he responded well and was placed on O2 supplementation. ER workup was positive for LLL PNA, ALEKSANDRA, and mild TNI elevation. Pt received IV abx. Pt was admitted in the hospital and started him on empirical abx. Today he is more alert, awake and O to place and self. Seems to be at baseline. - Constitutional Vitals: Temp Pulse Resp BP Pulse Ox 98.7 F 72 20 179/77 90 09/28/17 15:25 09/28/17 15:25 09/28/17 15:25 09/28/17 15:25 09/28/17 15:25 General appearance: Present: cooperative, A&O X 1, no acute distress - Head Head exam: Present: atraumatic, normal inspection - Neck Neck exam general surgery: Present: supple - Respiratory Respiratory exam: Present: decreased breath sounds. Absent: rales, respiratory distress, rhonchi, wheezes - Cardiovascular Cardiovascular exam: Present: +S1, +S2. Absent: tachycardia - GI/Abdominal GI/Abdominal exam: Present: normal bowel sounds, soft. Absent: rebound, rigid, tenderness - Extremities Exam Extremities exam: Absent: calf tenderness, pedal edema, tenderness - Back Exam Back exam: Absent: CVA tenderness (L), CVA tenderness (R) - Neurological Exam Neurological exam: Present: alert, oriented X3 - Psychiatric Psychiatric exam: Present: normal affect, normal mood Internal Medicine: Result - Labs CBC & Chem 7: 09/27/17 05:54 09/28/17 05:49 Labs: BMP 09/28/17 05:49 Sodium 145 Potassium 4.3 Chloride 110 H Carbon Dioxide 29 BUN 15 Creatinine 0.83 Glucose 109 H Calcium 8.7 Consult Discharge Plan - Plan Referrals: [facility] [Primary Care Provider] - ([facility])
[2017-09-28] MEDS ORDERED: Furosemide 20 MG TABLET PO SCH (15:45)
[2017-09-28] MEDS: Lisinopril 20 MG TABLET PO SCH (17:12)
[2017-09-28] MEDS: Furosemide 20 MG TABLET PO SCH (20:43)
[2017-09-28] MEDS: Acetaminophen 325 MG TABLET PO PRN (21:05)
[2017-09-29] MEDS: *HR* Heparin 5,000 UNIT/ML VIAL SQ SCH ×2 (05:58→16:18)
[2017-09-29] MEDS: GuaiFENesin/Dextromethorphan TABLET PO SCH ×2 (09:48→20:45)
[2017-09-29] MEDS: Furosemide 20 MG TABLET PO SCH ×2 (09:48→16:17)
[2017-09-29] MEDS: Loratadine 10 MG TABLET PO SCH (09:48)
[2017-09-29] MEDS: Sennosides 8.6 MG TABLET PO SCH ×2 (09:48→20:45)
[2017-09-29] MEDS: Lisinopril 20 MG TABLET PO SCH (09:48)
--- NOTE | 2017-09-29 15:25 | Internal Med Progress Note ---
Date of Encounter: 09/29/17 Time of Encounter: 15:21 - Assessment and plan (1) Altered mental status Current Visit: Yes Status: Acute Assessment and plan: Mostly due to toxic encephalopathy with PNA and advanced dementia He is still confused and disoriented As per the family he had some intermittent behavioral problems due to dementia before however he was very active at assisted living facility. Current AMS is They do not want to give him any Haldol so d/c Haldol Cont fall precautions Blood cx - no growth so far continue O2 supplementation Switched to PO Abx Augmentin # 5/ PT /OT eval done- recommend ECF placement Family finally agreed for ECF transfer Possible d/c to ECF in AM Qualifiers: Altered mental status type: unspecified Qualified Code(s): R41.82 - Altered mental status, unspecified (2) HCAP (healthcare-associated pneumonia) Current Visit: Yes Status: Acute Assessment and plan: Mostly bacterial PNA.. also concerned for aspiration Will educate about aspiration precautions Switched to PO Augmentin (3) Elevated troponin Current Visit: Yes Status: Acute Assessment and plan: Most likely due to demand ischemia in the setting of acute infection and pericardial effusion 2D echo showed preserved LVEF @ 55-60%, Normal LV size continue home dose of statin, BB (4) Cystitis Current Visit: Yes Status: Acute Assessment and plan: CT findings consistent with cystitis pt denies any dysuria continue broad spectrum IV ab Urine cx growing - E. COli (5) Dyspnea Current Visit: Yes Status: Acute Assessment and plan: secondary to PNA continue broad spectrum abx O2 supplementation Respiratory viral panel - Negative closely monitor respiratory status Qualifiers: Dyspnea type: shortness of breath Qualified Code(s): R06.02 - Shortness of breath; R06.00 - Dyspnea, unspecified; R06.01 - Orthopnea (6) Pericardial effusion Current Visit: Yes Status: Acute Assessment and plan: CT chest reported moderate pericardial effusion Reviewed 2D echo showed small size pericardial effusion No signs of cardiac tamponade will closely monitor (7) CHF (congestive heart failure) Current Visit: Yes Status: Chronic Assessment and plan: Resumed Lasix at 20mg PO BID Also resumed home med Lisinopril at 20mg d/c Aldactone monitor daily weight, I/OS Qualifiers: Heart failure type: unspecified Heart failure chronicity: chronic Qualified Code(s): I50.9 - Heart failure, unspecified (8) ALEKSANDRA (acute kidney injury) Current Visit: Yes Status: Acute Assessment and plan: Likely secondary to the underlying infectious etiology and initial hypotension noted upon arrival to the ER BP within acceptable range at this time will hold home dose of Lasix, LIsinopril, and spironolactone avoid nephrotoxin agents renally dose abx Improved (9) Hypertension Current Visit: Yes Status: Chronic Assessment and plan: Cont Metoprolol, Lasix and Lisinopril Still not well controlled added norvasc 5mg Qualifiers: Hypertension type: essential hypertension Qualified Code(s): I10 - Essential (primary) hypertension (10) HLD (hyperlipidemia) Current Visit: Yes Status: Chronic Assessment and plan: continue home statin Qualifiers: Hyperlipidemia type: unspecified Qualified Code(s): E78.5 - Hyperlipidemia , unspecified (11) DVT prophylaxis Current Visit: Yes Status: Acute Assessment and plan: heparin SQ - Time Spent With Patient Total time spent is greater than 50% in coordination of care (as documented) at patient's floor/unit and/or counseling patient: - Subjective Interval history: Mr. Kelly is a 81 year old male with PMH of CHF, HTN, HLD, CAD who was brought to the ER for evaluation of shortness of breath and change in mental status. Upon arrival to the ER, he was noted to be hypotensive and hypoxic. He received one fluid bolus to which he responded well and was placed on O2 supplementation. ER workup was positive for LLL PNA, ALEKSANDRA, and mild TNI elevation. Pt received IV abx. Pt was admitted in the hospital and started him on empirical abx. Today he is more alert, awake and O to place and self. Seems to be at baseline. Y/d evening he had another small episode if agitation.No events over night. - Constitutional Vitals: Temp Pulse Resp BP Pulse Ox 99.0 F 87 16 146/85 95 09/29/17 11:04 09/29/17 11:04 09/29/17 11:04 09/29/17 11:04 09/29/17 11:04 General appearance: Present: cooperative, A&O X 1, no acute distress - Head Head exam: Present: atraumatic, normal inspection - Neck Neck exam general surgery: Present: supple - Respiratory Respiratory exam: Present: decreased breath sounds. Absent: rales, respiratory distress, rhonchi, wheezes - Cardiovascular Cardiovascular exam: Present: RRR, +S1, +S2. Absent: tachycardia - GI/Abdominal GI/Abdominal exam: Present: normal bowel sounds, soft. Absent: rebound, rigid, tenderness - Extremities Exam Extremities exam: Absent: calf tenderness, pedal edema, tenderness - Back Exam Back exam: Absent: CVA tenderness (L), CVA tenderness (R) - Neurological Exam Neurological exam: Present: alert - Psychiatric Psychiatric exam: Present: anxious - Skin Skin exam: Absent: rash Internal Medicine: Result - Labs CBC & Chem 7: 09/27/17 05:54 09/28/17 05:49 Consult Discharge Plan - Plan [facility]errals: [facility] [Primary Care Provider[facility] - (DEACON)
[2017-09-29] MEDS: amLODIPine 5 MG TABLET PO SCH (16:18)
[2017-09-30] MEDS: Acetaminophen 325 MG TABLET PO PRN ×2 (00:23→12:54)
[2017-09-30 05:15] LABS: BUN/Creatinine Ratio 21 (6-26); Basophils % 0.3 %; Blood Urea Nitrogen 17 mg/dL (8-23); Calcium 8.7 mg/dL (8.6-10.3); Carbon Dioxide 25 mEq/L (23-29); Chloride 108 mEq/L (98-107); Eosinophils # 0.3 K/mcL (0.0-0.6); Eosinophils % 2.4 %; Glucose 112 mg/dL (70-105); Hematocrit 33.3 % (37.5-50.1); Hemoglobin 10.8 g/dL (12.9-16.9); Immature Granulocytes % 0.5 % (0-4); Lymphocytes # 1.7 K/mcL (0.6-4.6); Lymphocytes % 14.2 %; Magnesium 1.8 mg/dL (1.6-2.6); Mean Corpuscular HGB Conc 32.4 g/dL (31.6-35.5); Mean Corpuscular Hemoglobin 32.9 pg (28.0-33.3); Mean Corpuscular Volume 101.5 fL (83.0-100.0); Mean Platelet Volume 11.1 fL (9.4-12.4); Monocytes # 0.9 K/mcL (0.0-1.3); Monocytes % 8.1 %; Osmolality,Calculated 296 (280-300); Platelet Count 160 K/mcL (140-400); Potassium 4.4 mEq/L (3.5-5.1); Red Blood Count 3.28 M/mcL (4.19-5.50); Red Cell Distribution Width 15.1 % (11.5-14.5); Segmented Neutrophils % 74.5 %; Sodium 142 mEq/L (136-145); eGFR For African Americans > 60 (> 60); eGFR For Non-African Americans > 60 (> 60)
[2017-09-30 06:32] LABS: Neutrophils # 8.6 K/mcL (1.6-8.9)
[2017-09-30 06:33] LABS: Platelet Estimate Normal (Normal)
[2017-09-30] MEDS: *HR* Heparin 5,000 UNIT/ML VIAL SQ SCH (06:58)
[2017-09-30] MEDS: GuaiFENesin/Dextromethorphan TABLET PO SCH (07:48)
[2017-09-30] MEDS: Lisinopril 20 MG TABLET PO SCH (07:48)
[2017-09-30] MEDS: Furosemide 20 MG TABLET PO SCH (07:48)
[2017-09-30] MEDS: Loratadine 10 MG TABLET PO SCH (07:48)
[2017-09-30] MEDS: amLODIPine 5 MG TABLET PO SCH (07:48)
[2017-09-30] MEDS: Sennosides 8.6 MG TABLET PO SCH (07:49)
[2017-09-30 11:11] VITALS: BP 120/67
--- NOTE | 2017-09-30 14:07 | Physician Discharge Referral ---
ExtendedCare Referral Info Institutional Level of Care: Skilled - Diagnosis (1) Elevated troponin Status: Acute (2) Cystitis Status: Acute (3) Altered mental status Status: Acute (4) HCAP (healthcare-associated pneumonia) Status: Acute (5) Dyspnea Status: Acute (6) Pericardial effusion Status: Acute (7) DVT prophylaxis Status: Acute (8) CHF (congestive heart failure) Status: Chronic (9) Hypertension Status: Chronic (10) HLD (hyperlipidemia) Status: Chronic (11) ALEKSANDRA (acute kidney injury) Status: Acute - Transfer Medications Home Medications: Allopurinol [Zyloprim 100 MG] 100 mg PO BID 09/24/17 [History] Atorvastatin Calcium [Lipitor] 80 mg PO HS 09/24/17 [History] Furosemide [Lasix] 40 mg PO BID 09/24/17 [History] Loratadine [Allergy Relief] 10 mg PO DAILY 09/24/17 [History] Magnesium Hydroxide [Milk of Magnesia] 2,400 mg PO DAILY PRN 09/24/17 [History] Metoprolol [Lopressor] 25 mg PO BID 09/24/17 [History] Polyethylene Glycol 3350 [MiraLAX Powder Bulk 17.9 Oz] 1 scoop PO DAILY [History] Primidone [Mysoline] 250 mg PO BID 09/24/17 [History] Sennosides [Senokot] 8.6 mg PO BID 09/24/17 [History] Spironolactone [Aldactone] 50 mg PO BID 09/24/17 [History] Tamsulosin HCl [Flomax] 0.4 mg PO DAILY 09/24/17 [History] Amoxicillin/Clavulanate [Augmentin] 875 mg PO BIDWM #6 tablet 09/30/17 [Rx] Lisinopril [Zestril] 20 mg PO DAILY tablet 09/30/17 [Rx] amLODIPine [Norvasc] 5 mg PO DAILY tablet 09/30/17 [Rx] Allergies/Adverse Reactions: 3 Allergy/AdvReac Type Severity Reaction Status Date / Time morphine Allergy Itching Verified 08/05/15 23:25 naproxen [From Aleve] Allergy Itching Verified 08/05/15 23:25 - Respiratory Orders Smoking Cessation: Smoking cessation has been advised. For more information, call the [facility] [place] Tobacco Quit Line at 8-618-UGZA-NOW. CERTIFICATION: I certify that the transfer of the above named patient to an Extended Care Facility is necessary for the continuing treatment of the diagnosis listed. The above information is true and accurate reflection of patient's current condition. Confidential - Redisclosure prohibited without a patient's written consent.
--- NOTE | 2017-09-30 14:07 | Discharge Summary ---
- NOTES TO OUTPATIENT PROVIDER Notes to Outpatient Provider: Complete a 3 day course of Augmentin for healthcare acquired pneumonia Date of Encounter: 09/30/17 Time of Encounter: 11:00 - Discharge Diagnosis (1) Elevated troponin Priority: Primary Status: Acute (2) Cystitis Priority: Secondary Status: Acute (3) Altered mental status Priority: Primary Status: Acute Qualifiers: Altered mental status type: unspecified Qualified Code(s): R41.82 - Altered mental status, unspecified (4) HCAP (healthcare-associated pneumonia) Priority: Secondary Status: Acute (5) Dyspnea Priority: Secondary Status: Acute Qualifiers: Dyspnea type: shortness of breath Qualified Code(s): R06.02 - Shortness of breath; R06.00 - Dyspnea, unspecified; R06.01 - Orthopnea (6) Pericardial effusion Priority: Secondary Status: Acute (7) DVT prophylaxis Priority: Secondary Status: Acute (8) CHF (congestive heart failure) Priority: Secondary Status: Chronic Qualifiers: Heart failure type: unspecified Heart failure chronicity: chronic Qualified Code(s): I50.9 - Heart failure, unspecified (9) Hypertension Priority: Secondary Status: Chronic Qualifiers: Hypertension type: essential hypertension Qualified Code(s): I10 - Essential (primary) hypertension (10) HLD (hyperlipidemia) Priority: Secondary Status: Chronic Qualifiers: Hyperlipidemia type: unspecified Qualified Code(s): E78.5 - Hyperlipidemia , unspecified (11) ALEKSANDRA (acute kidney injury) Priority: Secondary Status: Acute Hospital course: Patient is an 81-year-old male with past medical history significant for CHF, HTN, HLD, CAD presented to the ER on 09/27/17 due to altered mental status. Daughter stated that she received a call from her father stating he is having difficulty breathing and would like to go to the hospital. In the ER, he was noted to be hypotensive and hypoxic. He received one fluid bolus to which he responded well and was placed on O2 supplementation. ER workup was positive for LLL PNA, ALEKSANDRA, and mild TNI elevation. Pt received empiric IV abx. During patients stay he was treated with a 5 day course of IV Zosyn which was descalated to Augmentin for concerns of healthcare acquired pneumonia with possible aspiration. Patient is now medically stable to be discharged to [facility] to complete a 3 day course of Augmentin. - Time Spent with Patient Total time spent providing and/or coordinating discharge services: Less than 30 minutes - Discharge Medications Home Medications: Allopurinol [Zyloprim 100 MG] 100 mg PO BID 09/24/17 [History] Atorvastatin Calcium [Lipitor] 80 mg PO HS 09/24/17 [History] Furosemide [Lasix] 40 mg PO BID 09/24/17 [History] Loratadine [Allergy Relief] 10 mg PO DAILY 09/24/17 [History] Magnesium Hydroxide [Milk of Magnesia] 2,400 mg PO DAILY PRN 09/24/17 [History] Metoprolol [Lopressor] 25 mg PO BID 09/24/17 [History] Polyethylene Glycol 3350 [MiraLAX Powder Bulk 17.9 Oz] 1 scoop PO DAILY [History] Primidone [Mysoline] 250 mg PO BID 09/24/17 [History] Sennosides [Senokot] 8.6 mg PO BID 09/24/17 [History] Spironolactone [Aldactone] 50 mg PO BID 09/24/17 [History] Tamsulosin HCl [Flomax] 0.4 mg PO DAILY 09/24/17 [History] Amoxicillin/Clavulanate [Augmentin] 875 mg PO BIDWM #6 tablet 09/30/17 [Rx] Lisinopril [Zestril] 20 mg PO DAILY tablet 09/30/17 [Rx] amLODIPine [Norvasc] 5 mg PO DAILY tablet 09/30/17 [Rx] Allergies/Adverse Reactions: 3 Allergy/AdvReac Type Severity Reaction Status Date / Time morphine Allergy Itching Verified 08/05/15 23:25 naproxen [From Aleve] Allergy Itching Verified 08/05/15 23:25 Date of admission: 09/27/17 11:19 [facility] care physician: [facility] Consults: 09/27/17 11:22 Consult to Occupational Therapy [CONS] Routine Comment: Evaluate, develop and implement POC Reason for Consult: eval for poss ecf, may need pre-cert Does patient have active BEDREST order?: No Is patient medically & hemodynamically stable?: Yes Consult to Physical Therapy [CONS] Routine Comment: Evaluate, develop and implement POC Reason for Consult: eval for poss ecf, may need pre-cert Does patient have active BEDREST order?: No Is patient medically & hemodynamically stable?: Yes 09/28/17 11:26 Consult to Hoister [CONS] Routine Reason for SW Consult: needs ecf - Constitutional Vitals: Temp Pulse Resp BP Pulse Ox 98 F 71 16 120/67 90 09/30/17 11:07 09/30/17 11:07 09/30/17 11:07 09/30/17 11:07 09/30/17 11:07 General appearance: Present: cooperative, A&O X 1, no acute distress - Respiratory Respiratory exam: Present: CTAB. Absent: accessory muscle use, rales, rhonchi, wheezes - Cardiovascular Cardiovascular exam: Present: RRR, +S1, +S2. Absent: diastolic murmur, gallop, rubs, systolic murmur - Patient Status Disposition: Transfer SNF Condition: Fair - Discharge Instructions Follow Up With: [facility] [Primary Care Provider] - ([facility])
== END 2017-09-30 16:07 | DRG 193 ==
LOC: EMEROO 16:41 → 2ANU 16:41 → SUATTDRO 09-27 11:19
PROVIDERS: ADMIT Internal Medicine; ATTEND Hospitalist

== ENCOUNTER 2017-11-16 08:29 | Inpatient (IN) ==
--- NOTE | 2017-11-16 09:13 | Emergency Department Note ---
Disposition Clinical Impression: Confusion, Dehydration, New onset atrial flutter Disposition: Admitted As Inpatient Condition: Good Fall HPI - General Chief Complaint: ED Fall Stated Complaint: Fall Source: patient, EMS Mode of arrival: ambulatory Limitations: no limitations Nursing Notes Reviewed: Yes Vital Signs Reviewed: Yes - History of Present Illness HPI Narrative: Past medical history of cardiac arrhythmia, hyperkalemia, essential tremor, generalized weakness, recurrent falls, hypertension. Patient presents today from the assisted living after the fall. Patient was found down. Patient had no specific complaints. Daughter was called and she states that he has made several calls to her cell phone without leaving a message. He has been more confused than previous. Patient will be further evaluation in regards to trauma as well as confusion and mental status and generalized weakness. Unable to get significant history from the patient secondary to weakness, confusion, likely underlying dementia. - Related Data Home Medications Medication Instructions Recorded Confirmed Allopurinol [Zyloprim 100 MG] 100 mg PO BID 09/24/17 11/16/17 Atorvastatin Calcium [Lipitor] 80 mg PO HS 09/24/17 11/16/17 Furosemide [Lasix] 40 mg PO BID 09/24/17 11/16/17 Loratadine [Allergy Relief] 10 mg PO DAILY 09/24/17 11/16/17 Magnesium Hydroxide [Milk of 2,400 mg PO DAILY PRN 09/24/17 11/16/17 Magnesia] Metoprolol [Lopressor] 25 mg PO BID 09/24/17 11/16/17 Polyethylene Glycol 3350 [MiraLAX 1 scoop PO DAILY 09/24/17 11/16/17 Powder Bulk 17.9 Oz] Primidone [Mysoline] 250 mg PO BID 09/24/17 11/16/17 Sennosides [Senokot] 8.6 mg PO BID 09/24/17 11/16/17 Spironolactone [Aldactone] 50 mg PO BID 09/24/17 11/16/17 Tamsulosin HCl [Flomax] 0.4 mg PO DAILY 09/24/17 11/16/17 Acetaminophen [Tylenol] 650 mg PO Q6HR PRN 11/16/17 11/16/17 Ascorbate Calcium [Vitamin C] 500 mg PO DAILY 11/16/17 11/16/17 Menthol/Zinc Ox/Aloe/Cristhian Oil 1 appl TP BID 11/16/17 11/16/17 [Chamosyn Ointment] Multivitamin [One Daily 1 tab PO DAILY 11/16/17 11/16/17 Multivitamin] Previous Rx's Medication Instructions Recorded Lisinopril [Zestril] 20 mg PO DAILY tablet 09/30/17 amLODIPine [Norvasc] 5 mg PO DAILY tablet 09/30/17 Allergies Allergy/AdvReac Type Severity Reaction Status Date / Time morphine Allergy Itching Verified 11/16/17 13:15 naproxen [From Aleve] Allergy Itching Verified 11/16/17 13:15 Limitations: ROS unobtainable due to patients medical condition Fall PMH - Past Medical History Medical history: Reports: asthma, coronary artery disease, hyperlipidemia, hypertension Surgical history: Reports: orthopedic, other Psychiatric history: Reports: no psych history - Social History Smoking Status: Former smoker Alcohol use: Reports: unknown Drug use: Reports: none Physical Exam General: Well appearing, nontoxic, no acute distress Head: Normocephalic Atraumatic Eyes: PERRL, EOMI ENT: Airway patent, no stridor; dry mucous membranes. Neck: supple Chest: Lungs clear to auscultation bilateral Cardiac: Regular rate and rhythm, no murmurs, rubs or gallops Abdomen: soft, nontender, nondistended; no guarding, rebound, or tenderness to percussion Musculoskeletal: Calves symmetric, nontender, no palpable cord Skin: No rash, normal skin tone throughout including the back Neuro: Awake and alert but not oriented to place or time. - General Limitations: no limitations General appearance: in no apparent distress Course - Reevaluation(s) Reevaluation #1: CT scan of his head and neck do not show any acute trauma. Chest x-ray and pelvis x-ray with no acute trauma. Blood work and urinalysis do not show infection. Concern for dehydration with elevated BUN/creatinine ratio and a decreased GFR. Patient will receive IV fluids. Reevaluation #2: Discussed with daughter at bedside. She is not the power of deputy prosecuting attorney but the power of deputy prosecuting attorney is on their way. The patient is not appropriate for going back to the assisted living at this time. Patient will need higher level of care. We will discuss with social work. BUN/creatinine significantly elevated from prior studies. Reevaluation #3: Discussed with family. Patient believes that he has fat even though he is skinny with a BMI of 27. He will not eat and drink as much as he is supposed to when he gets like this. This is likely contributing to his confusion. Patient was doing better when he was in a group home/rehabilitation. Family agrees to temporarily try group home again. They state they will return if he worsens despite management. Agree with treatment and this time. Additional Reevaluation(s): After the paperwork and plan was set to go to the group home. The patient developed atrial flutter with a rate in the 160s 170s. The patient received fluids as well as Lopressor. Heart rate is no longer atrial flutter with rapid ventricular response. We will continue to monitor and admit the patient for further evaluation and treatment. - Consultations Consultation #1: Discussed with hospitalist. Dr. Buchanan. Patient has mild elevation of BUN/ creatinine ratio without significant elevation in creatinine. Patient needs some hydration which can happen in the emergency department while waiting placement in group home. States nothing else be done for Hemoccult floor. Even though the family is concerned about this there are wrist coming in the hospital such as hospital-acquired infections. She requests that I discussed with the family. She believes and agrees that patient is probably best served by going to a group home. Consultation #2: Discussed with Dr. Trujillo. Patient accepted for admission pending cardiology consult. Consultation #3: Discussed with cardiology, Dr. Koch. They will consult on the case. Vital Signs Temperature 97.1 F L 11/16/17 08:33 Pulse Rate 91 11/16/17 08:33 Respiratory Rate 16 11/16/17 08:33 Blood Pressure 132/81 11/16/17 08:33 O2 Sat by Pulse Oximetry 92 11/16/17 08:33 Temperature 97.1 F L 11/16/17 08:33 Pulse Rate 48 11/16/17 13:27 Respiratory Rate 18 11/16/17 13:27 Blood Pressure 133/71 11/16/17 13:27 O2 Sat by Pulse Oximetry 95 11/16/17 13:27 Oxygen Delivery Oxygen Delivery Room Air Fall - Medical Records Medical records reviewed: Yes I reviewed the patient's medical records. - Lab Data Lab results reviewed: Yes I reviewed the patient's lab results. Result diagrams: 11/16/17 10:13 11/16/17 10:13 Lab Results 11/16/17 11/16/17 11/16/17 Range/Units 10:13 10:13 10:22 WBC 6.6 (4.3-11.1) K/mcL RBC 3.50 L (4.19-5.50) M/mcL Hgb 11.5 L (12.9-16.9) g/dL Hct 37.1 L (37.5-50.1) % MCV 106.0 H (83.0-100.0) fL MCH 32.9 (28.0-33.3) pg MCHC 31.0 L (31.6-35.5) g/dL RDW 15.0 H (11.5-14.5) % Plt Count 169 (140-400) K/mcL MPV 9.9 (9.4-12.4) fL Immature Gran % 0.3 (0-4) % Seg Neutrophils % 66.1 % Lymphocytes % 16.7 % Monocytes % 11.4 % Eosinophils % 5.0 % Basophils % 0.5 % Neutrophils # 4.3 (1.6-8.9) K/mcL Lymphocytes # 1.1 (0.6-4.6) K/mcL Monocytes # 0.8 (0.0-1.3) K/mcL Eosinophils # 0.3 (0.0-0.6) K/mcL Basophils # 0.0 (0.0-0.2) K/mcL Sodium 145 (136-145) mEq/L Potassium 4.9 (3.5-5.1) mEq/L Chloride 110 H (98-107) mEq/L Carbon Dioxide 27 (23-29) mEq/L BUN 35 H (8-23) mg/dL Creatinine 1.10 (0.70-1.30) mg/dL Est GFR ( Amer) > 60 (> 60) Est GFR (Non-Af Amer) > 60 (> 60) BUN/Creatinine Ratio 32 H (6-26) Glucose 107 H (70-105) mg/dL Calculated Osmolality 308 H (280-300) Calcium 9.0 (8.6-10.3) mg/dL Troponin I < 0.03 (< 0.04) ng/mL Urine Color Yellow (Yellow) Urine Clarity Clear (Clear) Urine pH 5.5 (5.0-8.0) pH Units Ur Specific [place] 1.018 (1.010-1.025) Urine Protein Negative (Neg-Trace) mg/dL Urine Glucose (UA) Normal (Normal) mg/dL Urine Ketones Negative (Negative) mg/dL Urine Blood Negative (Negative) Urine Nitrite Negative (Negative) Urine Bilirubin Negative (Negative) Urine Urobilinogen Normal (Normal) mg/dL Ur Leukocyte Esterase Negative (Negative) Ur Culture Indicated? NO (NO) - Radiology Data Radiology results reviewed: Yes I reviewed the patient's radiology results. - EKG Data EKG attestation: Yes I reviewed and interpreted this EKG. EKG results narrative: EKG shows sinus rhythm with ventricular rate of 87. IA 157. QRS 77. QTC 35. Patient has no significant ST elevations or depressions. No changes from previous EKG of 09/24/17.
[2017-11-16 10:25] LABS: Basophils % 0.5 %; Eosinophils # 0.3 K/mcL (0.0-0.6); Hematocrit 37.1 % (37.5-50.1); Hemoglobin 11.5 g/dL (12.9-16.9); Immature Granulocytes % 0.3 % (0-4); Lymphocytes # 1.1 K/mcL (0.6-4.6); Lymphocytes % 16.7 %; Mean Corpuscular Hemoglobin 32.9 pg (28.0-33.3); Mean Platelet Volume 9.9 fL (9.4-12.4); Monocytes # 0.8 K/mcL (0.0-1.3); Monocytes % 11.4 %; Neutrophils # 4.3 K/mcL (1.6-8.9); Platelet Count 169 K/mcL (140-400); Segmented Neutrophils % 66.1 %
[2017-11-16 10:47] LABS: Troponin I < 0.03 ng/mL (< 0.04)
[2017-11-16 10:47] LABS: Bilirubin,Urine Negative (Negative); Blood,Urine Negative (Negative); Clarity,Urine Clear (Clear); Color,Urine Yellow (Yellow); Glucose,Urine (UA) Normal (Normal); Ketones,Urine Negative (Negative); Leukocyte Esterase,Urine Negative (Negative); Nitrite,Urine Negative (Negative); PH,Urine 5.5 pH Units (5.0-8.0); Protein,Urine Negative (Neg-Trace); Specific Gravity,Urine 1.018 (1.010-1.025); Urobilinogen,Urine Normal (Normal)
[2017-11-16 10:57] LABS: BUN/Creatinine Ratio 32 (6-26); Blood Urea Nitrogen 35 mg/dL (8-23); Carbon Dioxide 27 mEq/L (23-29); Chloride 110 mEq/L (98-107); Glucose 107 mg/dL (70-105); Osmolality,Calculated 308 (280-300); Potassium 4.9 mEq/L (3.5-5.1); Sodium 145 mEq/L (136-145); eGFR For African Americans > 60 (> 60); eGFR For Non-African Americans > 60 (> 60)
[2017-11-16] MEDS ORDERED: 0.9 % Sodium Chloride 1,000 ML IVC ONE (11:33)
[2017-11-16] MEDS ORDERED: *HR* Metoprolol 5 MG/5 ML VIAL IVP ONE ×2 (14:16→14:43)
--- NOTE | 2017-11-16 14:49 | Electrocardiograph Report ---
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
--- NOTE | 2017-11-16 15:01 | Electrocardiograph Report ---
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
[2017-11-16] MEDS ORDERED: 0.9 % Sodium Chloride 500 ML IVC ONE (15:22)
[2017-11-16 15:43] LABS: Magnesium 2.3 mg/dL (1.6-2.6)
[2017-11-16] MEDS ORDERED: Ondansetron 4 MG/2 ML VIAL IVP ONE (15:46)
[2017-11-16 15:56] LABS: Thyroid Stimulating Hormone 0.949 mcIU/mL (0.340-5.600)
[2017-11-16] MEDS ORDERED: Naloxone 0.4 MG/ML INJ IVP PRN (16:40)
[2017-11-16] MEDS ORDERED: MOM Conc 10 ML UD.LIQ PO PRN ×2 (16:46→17:45)
[2017-11-16] MEDS ORDERED: Acetaminophen 325 MG TABLET PO PRN (16:46)
--- NOTE | 2017-11-16 16:55 | Internal Med History&Physical ---
Date of Encounter: 11/16/17 Time of Encounter: 16:55 Internal Medicine - H&P: HPI Chief complaint: Fall and A-flutter Admitted From: Long-term Nursing Facility (Currently lives at a Assisted Living) Plans for Post Hospital Care: Transfer Inp Rehab Fac (Family mentioned transfer to inpatient rehab facility then possibly NH) History of present illness: Mr. Kelly is a 81 year old male with history of asthma, CAD, HLD and HTN. The patient apparently fell at the assisted living and was brought in. The family noticed a increase in his confusion. The patient was found to be in Aflutter after his arrival with heart rates in the 160-170's, and was dehydrated. CARDIOLOGY was consulted in the ED. The patient was given metoprolol. During my assessment the patient was waiting to go upstairs to his room, so tele had been removed. The patient cervical spine is negative for fracture. The scan showed degenerative disease with large posterior osteophytes at C5-6, narrowing the spinal canal. pPelvis xray showed ostepenia. Cxr was negative for acute abnormalities, and cat scan of the head was negative but showed small vessel ischemic disease. Neuro checks will be completed. Past Med Surg Social Fam HX - Past Medical History Medical history: asthma, coronary artery disease, hyperlipidemia, hypertension Additional medical history: Gout Psychiatric history: no psych history - Past Surgical History Surgical History: orthopedic, other Additional surgical history: Left hip surgery, Back Surgery x 2 - Social History Smoking Status: Former smoker Smokeless Tobacco Status: No Alcohol use: unknown Drug use: none Internal Medicine - H&P: Meds Allopurinol [Zyloprim 100 MG] 100 mg PO BID 09/24/17 [History] Atorvastatin Calcium [Lipitor] 80 mg PO HS 09/24/17 [History] Furosemide [Lasix] 40 mg PO BID 09/24/17 [History] Loratadine [Allergy Relief] 10 mg PO DAILY 09/24/17 [History] Magnesium Hydroxide [Milk of Magnesia] 2,400 mg PO DAILY PRN 09/24/17 [History] Metoprolol [Lopressor] 25 mg PO BID 09/24/17 [History] Polyethylene Glycol 3350 [MiraLAX Powder Bulk 17.9 Oz] 1 scoop PO DAILY [History] Primidone [Mysoline] 250 mg PO BID 09/24/17 [History] Sennosides [Senokot] 8.6 mg PO BID 09/24/17 [History] Spironolactone [Aldactone] 50 mg PO BID 09/24/17 [History] Tamsulosin HCl [Flomax] 0.4 mg PO DAILY 09/24/17 [History] Lisinopril [Zestril] 20 mg PO DAILY tablet 09/30/17 [Rx] amLODIPine [Norvasc] 5 mg PO DAILY tablet 09/30/17 [Rx] Acetaminophen [Tylenol] 650 mg PO Q6HR PRN 11/16/17 [History] Ascorbate Calcium [Vitamin C] 500 mg PO DAILY 11/16/17 [History] Menthol/Zinc Ox/Aloe/Cristhian Oil [Chamosyn Ointment] 1 appl TP BID 11/16/17 [ History] Multivitamin [One Daily Multivitamin] 1 tab PO DAILY 11/16/17 [History] 3 Allergy/AdvReac Type Severity Reaction Status Date / Time morphine Allergy Itching Verified 11/16/17 13:15 naproxen [From Aleve] Allergy Itching Verified 11/16/17 13:15 All Systems PM: A 10-system review of systems was performed and is negative for pertinent findings except as documented above in the HPI. - Constitutional Constitutional: no chills, no fever(s), no night sweats - EENT Eyes: no change in vision, no discharge, no pain, no photophobia Ears: no ear discharge, no ear pain, no tinnitus Nose, mouth and throat: no dysphagia, no nasal discharge, no neck pain, no sore throat - Cardiovascular Cardiovascular ROS IM: no chest pain, no diaphoresis, no dyspnea, no lightheadedness, no palpitations, no syncope - Respiratory Respiratory: chest congestion, excessive phlegm production, no cough, no dyspnea , no wheezing - Gastrointestinal Gastrointestinal: no abdominal pain, no diarrhea, no hematemesis, no hematochezia, no melena, no nausea, no vomiting - Musculoskeletal Musculoskeletal ROS IM: no numbness, no tingling - Integumentary Integumentary IM: no rash, no unusual bruising - Neurological Neurological ROS: confusion, no convulsions, no focal weakness, no numbness, no tingling, no tremor(s) - Hematologic/Lymphatic Hematologic/Lymphatic: no easy bruising - Constitutional Vitals: Temp Pulse Resp BP Pulse Ox 97.1 F L 48 18 130/93 95 11/16/17 08:33 11/16/17 13:27 11/16/17 16:30 11/16/17 16:30 11/16/17 13:27 General appearance: Present: A&O X 2 (Patient is not reliable at this time,) - Head Head exam: Present: atraumatic, normocephalic - Eye Eye exam: Present: PERRL, conjuntiva pink, sclera anicteric Pupils: Present: PERRL - Neck Neck exam general surgery: Present: supple, trachea midline. Absent: lymphadenopathy - Respiratory Respiratory exam: Present: decreased breath sounds (Severely decreased ), rhonchi. Absent: accessory muscle use, rales, wheezes - Cardiovascular Cardiovascular exam: Present: irregular rhythm (Aflutter ), +S1, +S2. Absent: diastolic murmur, gallop, rubs, systolic murmur - GI/Abdominal GI/Abdominal exam: Present: normal bowel sounds, soft, no peritoneal signs. Absent: distended, tenderness - Extremities Exam Extremities exam: Present: warm, radial pulses palpable and symmetrical. Absent : calf tenderness, cyanotic, pedal edema - Neurological Exam Neurological exam: Present: alert, CN II-XII intact, no focal deficits. Absent : pronater drift, facial droop, speech deficit - Skin Skin exam: Present: dry, intact Internal Med - H&P Results - Labs CBC & Chem 7: 11/16/17 10:13 11/16/17 10:13 - Assessment and plan (1) New onset atrial flutter Current Visit: Yes Status: Acute Assessment and plan: Patient dtr indicated that the patient had a heart ablation for an "irregular" heart-rate almost 10 years ago. He has not had any reoccurrence since then. Cardiac monitoring Cardiology consulted (2) Altered mental status Current Visit: No Status: Acute Assessment and plan: CT of head negative for acute changes. Neurological checks Qualifiers: Altered mental status type: unspecified Qualified Code(s): R41.82 - Altered mental status, unspecified (3) Dehydration Current Visit: Yes Status: Acute Assessment and plan: Patient not eating well, per the family/POA at the assited living BUN is 35, Continue IVF's Monitor daily labs (4) Falls Current Visit: Yes Status: Acute Assessment and plan: Up with assist only PT/OT consults Qualifiers: Encounter type: initial encounter Qualified Code(s): W19.XXXA - Unspecified fall, initial encounter (5) Hypertension Current Visit: Yes Status: Chronic Assessment and plan: Bp is controlled Continue home medications Qualifiers: Hypertension type: essential hypertension Qualified Code(s): I10 - Essential (primary) hypertension - Time Spent With Patient Total time spent is greater than 50% in coordination of care (as documented) at patient's floor/unit and/or counseling patient: 25 - 35 minutes
[2017-11-16] MEDS: Furosemide 40 MG TABLET PO SCH (17:37)
[2017-11-16] MEDS: 0.9 % Sodium Chloride 1,000 ML IVC SCH (17:40)
[2017-11-16] MEDS: Sennosides 8.6 MG TABLET PO SCH (21:57)
[2017-11-17 07:12] LABS: Basophils % 0.2 %; Eosinophils # 0.3 K/mcL (0.0-0.6); Eosinophils % 3.2 %; Hemoglobin 12.1 g/dL (12.9-16.9); Immature Granulocytes % 0.1 % (0-4); Lymphocytes # 1.2 K/mcL (0.6-4.6); Mean Corpuscular HGB Conc 31.8 g/dL (31.6-35.5); Mean Corpuscular Hemoglobin 33.8 pg (28.0-33.3); Mean Corpuscular Volume 106.1 fL (83.0-100.0); Monocytes # 0.8 K/mcL (0.0-1.3); Monocytes % 9.5 %; Neutrophils # 5.8 K/mcL (1.6-8.9); Platelet Count 163 K/mcL (140-400); Red Blood Count 3.58 M/mcL (4.19-5.50); Red Cell Distribution Width 14.6 % (11.5-14.5)
[2017-11-17 07:24] LABS: BUN/Creatinine Ratio 29 (6-26); Blood Urea Nitrogen 23 mg/dL (8-23); Calcium 8.5 mg/dL (8.6-10.3); Carbon Dioxide 26 mEq/L (23-29); Chloride 109 mEq/L (98-107); Chol/HDL Ratio 3.7 (0-4.9); Cholesterol 100 mg/dL (< 200); Glucose 105 mg/dL (70-105); HDL Cholesterol 27 mg/dL (40-59); LDL Cholesterol,Calculated 50 mg/dL (0-99); Magnesium 1.9 mg/dL (1.6-2.6); Osmolality,Calculated 294 (280-300); Potassium 4.7 mEq/L (3.5-5.1); Sodium 140 mEq/L (136-145); Triglycerides 114 mg/dL (< 150); eGFR For African Americans > 60 (> 60); eGFR For Non-African Americans > 60 (> 60)
[2017-11-17] MEDS: Ascorbic Acid 500 MG TABLET PO SCH (09:48)
[2017-11-17] MEDS: amLODIPine 5 MG TABLET PO SCH (09:48)
[2017-11-17] MEDS: Multivit/Ca/Min/Fe/FA 1 TAB TABLET PO SCH (09:49)
[2017-11-17] MEDS: Loratadine 10 MG TABLET PO SCH (09:49)
[2017-11-17] MEDS: Lisinopril 20 MG TABLET PO SCH (09:49)
[2017-11-17] MEDS: Furosemide 40 MG TABLET PO SCH (09:49)
[2017-11-17] MEDS: Sennosides 8.6 MG TABLET PO SCH ×2 (09:57→23:33)
[2017-11-17] MEDS ORDERED: *HR* Metoprolol 5 MG/5 ML VIAL IVP PRN (12:23)
--- NOTE | 2017-11-17 14:17 | Internal Med Progress Note ---
Date of Encounter: 11/17/17 Time of Encounter: 10:00 - Assessment and plan (1) New onset atrial flutter Current Visit: Yes Status: Acute Assessment and plan: ?new onset, apparently has remote hx of "ablation" in the past according to chart review CHADSVasc score of at least 3 for age, HTN on metoprolol 25mg BID at home, HR poorly controlled will increase to 50mg BID and add PRN lopressor for HR persistently > 110 Cardiology on consult, will defer the decision on AC (2) ALEKSANDRA (acute kidney injury) Current Visit: Yes Status: Acute Assessment and plan: Improved with IVF monitor off IVF will hold off on lasix for now (3) Confusion Current Visit: Yes Status: Chronic Assessment and plan: was noted to be confused during prior admission too, suspect underlying dementia aggravated by dehydration, improved with IVF CT head shows diffuse cerebral atrophy TSH normal, CXR/UA unremarkable macrocytosis ?hx of EtOH abuse, would clarify with the family will treat for aflutter as below and plan for eventual transfer to [place] (4) Hypertension Current Visit: Yes Status: Chronic Assessment and plan: continue home meds Qualifiers: Hypertension type: essential hypertension Qualified Code(s): I10 - Essential (primary) hypertension (5) DVT prophylaxis Current Visit: Yes Status: Acute Assessment and plan: sq heparin - Time Spent With Patient Total time spent is greater than 50% in coordination of care (as documented) at patient's floor/unit and/or counseling patient: - Subjective Interval history: speech is slow and difficult to understand (apparently has chronic speech deficit upon reviewing the chart) but denies any acute complaints. - Constitutional Vitals: Temp Pulse Resp BP Pulse Ox 98.1 F 70 15 105/73 99 11/17/17 14:01 11/17/17 14:01 11/17/17 14:01 11/17/17 14:01 11/17/17 14:01 General appearance: Present: A&O X 2 (Patient is not reliable at this time,) Exam: General: Alert, follows commands appropriately HEENT:EOM, pupils equal, round, and reactive. Cardiovascular:Tachycardic, no JVD Lungs:Normal breath sounds, no wheezes or crackles. Abdomen:Soft, non-tender, no rigidity. Extremities:No deformity, no edema or tenderness, no joint swelling. Neurological:Speech is difficult to understand but follows commands appropriately. Skin:Normal color, no rash, no lesions. Pulses:Carotid and radial pulses normal +2. Rest of the physical exam is non-contributory Internal Medicine: Result - Labs CBC & Chem 7: 11/17/17 06:50 11/17/17 06:50 Labs: Short CBC 11/17/17 Range/Units 06:50 WBC 8.1 (4.3-11.1) K/mcL Hgb 12.1 L (12.9-16.9) g/dL Hct 38.0 (37.5-50.1) % Plt Count 163 (140-400) K/mcL Neutrophils # 5.8 (1.6-8.9) K/mcL BMP 11/17/17 06:50 Sodium 140 Potassium 4.7 Chloride 109 H Carbon Dioxide 26 BUN 23 Creatinine 0.79 Glucose 105 Calcium 8.5 L Cardiac Enzymes 11/17/17 Range/Units 06:50 Troponin I < 0.03 (< 0.04) ng/mL - VTE Documentation of Mechanical Device: Venous foot pump, device Consult Discharge Plan - Plan Referrals: [facility] [Outside]
[2017-11-17] MEDS: ALOE TP SCH (23:33)
[2017-11-17] MEDS: [UNRECOGNIZED DRUG - OTHER] TP SCH (23:33)
[2017-11-17] MEDS: ZINC OX TP SCH (23:33)
[2017-11-17] MEDS: MENTHOL TP SCH (23:33)
[2017-11-17] MEDS: *HR* Heparin 5,000 UNIT/ML VIAL SQ SCH (23:34)
[2017-11-17] MEDS ORDERED: 0.9 % Sodium Chloride 1,000 ML IVC SCH (23:45)
[2017-11-18] MEDS: 0.9 % Sodium Chloride 1,000 ML IVC SCH (00:20)
[2017-11-18 05:30] LABS: Basophils % 0.4 %; Eosinophils # 0.1 K/mcL (0.0-0.6); Eosinophils % 1.6 %; Hematocrit 36.3 % (37.5-50.1); Hemoglobin 11.5 g/dL (12.9-16.9); Immature Granulocytes % 0.3 % (0-4); Mean Corpuscular HGB Conc 31.7 g/dL (31.6-35.5); Mean Corpuscular Hemoglobin 32.8 pg (28.0-33.3); Mean Corpuscular Volume 103.4 fL (83.0-100.0); Mean Platelet Volume 10.1 fL (9.4-12.4); Monocytes # 0.7 K/mcL (0.0-1.3); Monocytes % 7.3 %; Neutrophils # 7.2 K/mcL (1.6-8.9); Platelet Count 161 K/mcL (140-400); Red Blood Count 3.51 M/mcL (4.19-5.50); Red Cell Distribution Width 14.4 % (11.5-14.5); Segmented Neutrophils % 79.4 %
[2017-11-18 05:56] LABS: BUN/Creatinine Ratio 24 (6-26); Blood Urea Nitrogen 19 mg/dL (8-23); Calcium 8.9 mg/dL (8.6-10.3); Carbon Dioxide 26 mEq/L (23-29); Chloride 110 mEq/L (98-107); Glucose 108 mg/dL (70-105); Magnesium 1.8 mg/dL (1.6-2.6); Osmolality,Calculated 301 (280-300); Potassium 4.5 mEq/L (3.5-5.1); Sodium 144 mEq/L (136-145); eGFR For African Americans > 60 (> 60); eGFR For Non-African Americans > 60 (> 60)
[2017-11-18] MEDS: *HR* Heparin 5,000 UNIT/ML VIAL SQ SCH ×2 (06:21→14:09)
--- NOTE | 2017-11-18 07:13 | Electrocardiograph Report ---
[address] [place] [address] Test Date: 2017-11-17 Pat Name: Luis Kelly Department: 115 Room: 3A11 Gender: Service Delivery Manager: : [id number] Requested By: [id number] Order Number: [id number] Reading MD: Alfredo Bauer Measurements Intervals [place] Rate: 98 P: 41 GA: 136 QRS: 32 QRSD: 70 T: 58 QT: 314 QTc: 369 Interpretive Statements SINUS RHYTHM WITH SINUS ARRHYTHMIA LEFT ATRIAL ENLARGEMENT Electronically Signed On 11-18-2017 7:12:01 EDT by Alfredo Bauer
[2017-11-18] MEDS: Sennosides 8.6 MG TABLET PO SCH (09:20)
[2017-11-18] MEDS: Multivit/Ca/Min/Fe/FA 1 TAB TABLET PO SCH (09:20)
[2017-11-18] MEDS: Ascorbic Acid 500 MG TABLET PO SCH (09:20)
[2017-11-18] MEDS: Lisinopril 20 MG TABLET PO SCH (09:20)
[2017-11-18] MEDS: amLODIPine 5 MG TABLET PO SCH (09:20)
[2017-11-18] MEDS: Loratadine 10 MG TABLET PO SCH (09:20)
[2017-11-18] MEDS: MENTHOL TP SCH (09:22)
[2017-11-18] MEDS: ZINC OX TP SCH (09:22)
[2017-11-18] MEDS: [UNRECOGNIZED DRUG - OTHER] TP SCH (09:22)
[2017-11-18] MEDS: ALOE TP SCH (09:22)
[2017-11-18 09:36] LABS: Vitamin B12 360 pg/mL (250-1100)
[2017-11-18 09:38] LABS: Folate > 22.3 ng/mL (3.0-16.0)
--- NOTE | 2017-11-18 11:59 | Event Note ---
Date of Encounter: 11/18/17 Time of Encounter: 11:56 - Cardiology Event Note Cardiology was consulted for concerns of A-Flutter on admission EKG. I reviewed all EKGs and telemetry with Dr. Koch. Initial EKG has artifact, but appears to be sinus tach, P waves seen. All repeat EKGs and telemetry are sinus rhythm. Agree with hospitalist increase in BB for sinus tach. Discussed with hospitalist. Since no A-Flutter is seen, will sign off. Reconsult PRN. No anticoagulation is warranted.
--- NOTE | 2017-11-18 14:39 | Discharge Summary ---
- NOTES TO OUTPATIENT PROVIDER Notes to Outpatient Provider: admitted for confusion secondary to dehydration +/ - diuretic use. Lasix is held and will need to be evaluated for restarting it in near future. Date of Encounter: 11/18/17 Time of Encounter: 11:20 - Discharge Diagnosis (1) ALEKSANDRA (acute kidney injury) Priority: Primary Status: Acute (2) Confusion Priority: Secondary Status: Chronic (3) Hypertension Priority: Secondary Status: Chronic Qualifiers: Hypertension type: essential hypertension Qualified Code(s): I10 - Essential (primary) hypertension (4) DVT prophylaxis Priority: Secondary Status: Acute Hospital course: Mr. Kelly is a 81 year old male with PMHx of asthma, CAD, HLD, HTN who presented from assisted living facility with confusion. Initially thought to have aflutter but was later deemed to be sinus tach, likely due to dehydration + /- diuretic use. CXR, urinalysis WNL. Lasix was held and IVF was given with clinical improvement. There was a question on his baseline mental status; CT head showed diffuse cerebral atrophy and CBC showed macrocytosis. TSH, B12/ folate unremarkable. ?Hx of EtOH use but was unable to verify with patient's daughter despite calling her multiple times. His metoprolol was increased from 25mg BID to 50mg BID. - Time Spent with Patient Total time spent providing and/or coordinating discharge services: - Discharge Medications Prescriptions: Metoprolol [Lopressor] 50 mg PO BID 30 Days #60 tablet Home Medications: Allopurinol [Zyloprim 100 MG] 100 mg PO BID 09/24/17 [History] Atorvastatin Calcium [Lipitor] 80 mg PO HS 09/24/17 [History] Loratadine [Allergy Relief] 10 mg PO DAILY 09/24/17 [History] Magnesium Hydroxide [Milk of Magnesia] 2,400 mg PO DAILY PRN 09/24/17 [History] Polyethylene Glycol 3350 [MiraLAX Powder Bulk 17.9 Oz] 1 scoop PO DAILY [History] Primidone [Mysoline] 250 mg PO BID 09/24/17 [History] Sennosides [Senokot] 8.6 mg PO BID 09/24/17 [History] Spironolactone [Aldactone] 50 mg PO BID 09/24/17 [History] Tamsulosin HCl [Flomax] 0.4 mg PO DAILY 09/24/17 [History] Lisinopril [Zestril] 20 mg PO DAILY tablet 09/30/17 [Rx] amLODIPine [Norvasc] 5 mg PO DAILY tablet 09/30/17 [Rx] Acetaminophen [Tylenol] 650 mg PO Q6HR PRN 11/16/17 [History] Ascorbate Calcium [Vitamin C] 500 mg PO DAILY 11/16/17 [History] Menthol/Zinc Ox/Aloe/Cristhian Oil [Chamosyn Ointment] 1 appl TP BID 11/16/17 [ History] Multivitamin [One Daily Multivitamin] 1 tab PO DAILY 11/16/17 [History] Metoprolol [Lopressor] 50 mg PO BID 30 Days #60 tablet 11/18/17 [Rx] Allergies/Adverse Reactions: 3 Allergy/AdvReac Type Severity Reaction Status Date / Time morphine Allergy Itching Verified 11/16/17 13:15 naproxen [From Aleve] Allergy Itching Verified 11/16/17 13:15 Date of admission: 11/18/17 12:25 Primary care physician: PCP [place] - Constitutional Vitals: Temp Pulse Resp BP Pulse Ox 98.1 F 85 16 120/60 91 11/18/17 12:16 11/18/17 12:16 11/18/17 12:16 11/18/17 12:16 11/18/17 12:16 General appearance: Present: A&O X 2 (Patient is not reliable at this time,) Exam: General: Alert, follows commands appropriately HEENT:EOM, pupils equal, round, and reactive. Cardiovascular:Tachycardic, no JVD Lungs:Normal breath sounds, no wheezes or crackles. Abdomen:Soft, non-tender, no rigidity. Extremities:No deformity, no edema or tenderness, no joint swelling. Neurological:Speech is difficult to understand but follows commands appropriately. Skin:Normal color, no rash, no lesions. Pulses:Carotid and radial pulses normal +2. Rest of the physical exam is non-contributory - Patient Status Disposition: Transfer SNF Condition: Good Overall status at discharge: patient is progressing back to baseline - Discharge Instructions Instructions: Chronic Hypertension (DC) Follow Up With: [facility] [Outside] - Diet and Activity Activity: as per physical therapy Diet: advance to your usual diet - VTE Documentation of Mechanical Device: Venous foot pump, device
[2017-11-18 14:57] VITALS: BP 147/83
--- NOTE | 2017-11-18 16:55 | Physician Discharge Referral ---
ExtendedCare Referral Info Transfer To: F - Diagnosis (1) ALEKSANDRA (acute kidney injury) Priority: Primary Status: Acute (2) Confusion Priority: Secondary Status: Chronic (3) Hypertension Priority: Secondary Status: Chronic (4) DVT prophylaxis Priority: Secondary Status: Acute - Transfer Medications Prescriptions: Metoprolol [Lopressor] 50 mg PO BID 30 Days #60 tablet Home Medications: Allopurinol [Zyloprim 100 MG] 100 mg PO BID 09/24/17 [History] Atorvastatin Calcium [Lipitor] 80 mg PO HS 09/24/17 [History] Loratadine [Allergy Relief] 10 mg PO DAILY 09/24/17 [History] Magnesium Hydroxide [Milk of Magnesia] 2,400 mg PO DAILY PRN 09/24/17 [History] Polyethylene Glycol 3350 [MiraLAX Powder Bulk 17.9 Oz] 1 scoop PO DAILY [History] Primidone [Mysoline] 250 mg PO BID 09/24/17 [History] Sennosides [Senokot] 8.6 mg PO BID 09/24/17 [History] Spironolactone [Aldactone] 50 mg PO BID 09/24/17 [History] Tamsulosin HCl [Flomax] 0.4 mg PO DAILY 09/24/17 [History] Lisinopril [Zestril] 20 mg PO DAILY tablet 09/30/17 [Rx] amLODIPine [Norvasc] 5 mg PO DAILY tablet 09/30/17 [Rx] Acetaminophen [Tylenol] 650 mg PO Q6HR PRN 11/16/17 [History] Ascorbate Calcium [Vitamin C] 500 mg PO DAILY 11/16/17 [History] Menthol/Zinc Ox/Aloe/Cristhian Oil [Chamosyn Ointment] 1 appl TP BID 11/16/17 [ History] Multivitamin [One Daily Multivitamin] 1 tab PO DAILY 11/16/17 [History] Metoprolol [Lopressor] 50 mg PO BID 30 Days #60 tablet 11/18/17 [Rx] Allergies/Adverse Reactions: 3 Allergy/AdvReac Type Severity Reaction Status Date / Time morphine Allergy Itching Verified 11/16/17 13:15 naproxen [From Aleve] Allergy Itching Verified 11/16/17 13:15 - Respiratory Orders Smoking Cessation: Smoking cessation has been advised. For more information, call the [place] Tobacco Quit Line at 8-291-KUJM-NOW. - Rehabiliation Orders Rehab Orders: Evaluation for Physical Therapy, Evaluation for Occupational Therapy (Monitor for oxygenation status and may have to restart lasix if needed) - Diet Orders Regular CERTIFICATION: I certify that the transfer of the above named patient to an Extended Care Facility is necessary for the continuing treatment of the diagnosis listed. The above information is true and accurate reflection of patient's current condition. Confidential - Redisclosure prohibited without a patient's written consent.
== END 2017-11-18 18:36 | DRG 684 ==
LOC: EMEROO 08:29 → 3ANU 08:29 → SUATTDRO 15:04 → 3ANU 16:35
PROVIDERS: ADMIT Internal Medicine Nephrology; ATTEND Internal Medicine

== ENCOUNTER 2018-01-03 02:55 | Inpatient (IN) ==
[2018-01-03] MEDS ORDERED: *HR* Metoprolol 5 MG/5 ML VIAL IVP ONE (03:17)
--- NOTE | 2018-01-03 03:23 | Emergency Department Note ---
Disposition Clinical Impression: Atrial fibrillation with RVR Disposition: Still a Patient Condition: Fair [facility] Care Provider[facility] - Forms: ED Satisfaction Letter Time of Disposition: 07:54 General Adult HPI - General Chief complaint: ED Fall Stated complaint: fall Time Seen by Provider: 01/03/18 03:09 Source: patient, EMS Limitations: no limitations - History of Present Illness HPI Narrative: This is an 82-year-old male who lives in assisted living who is brought in for evaluation after a fall. Apparently he fell against a wall and then landed on his buttocks. He appears to have no associated pain. Pain Scale: 4 - Related Data Home Medications Medication Instructions Recorded Confirmed Allopurinol [Zyloprim 100 MG] 100 mg PO BID 09/24/17 01/03/18 Atorvastatin Calcium [Lipitor] 80 mg PO HS 09/24/17 01/03/18 Magnesium Hydroxide [Milk of 2,400 mg PO DAILY PRN 09/24/17 01/03/18 Magnesia] Polyethylene Glycol 3350 [MiraLAX 1 scoop PO DAILY 09/24/17 01/03/18 Powder Bulk 17.9 Oz] Primidone [Mysoline] 250 mg PO BID 09/24/17 01/03/18 Sennosides [Senokot] 8.6 mg PO BID 09/24/17 01/03/18 Spironolactone [Aldactone] 50 mg PO BID 09/24/17 01/03/18 Tamsulosin HCl [Flomax] 0.4 mg PO DAILY 09/24/17 01/03/18 Hydrophilic Ointment [Aquabase] 1 appl TP BID 01/03/18 01/03/18 Lisinopril [Zestril] 10 mg PO DAILY 01/03/18 01/03/18 Metoprolol [Lopressor] 25 mg PO BID 01/03/18 01/03/18 Simethicone [Gas-X] 160 mg PO DAILY PRN 01/03/18 01/03/18 Allergies Allergy/AdvReac Type Severity Reaction Status Date / Time morphine Allergy Itching Verified 11/16/17 13:15 naproxen [From Aleve] Allergy Itching Verified 11/16/17 13:15 All systems ED: reviewed and negative except as stated. Cardiovascular: Reports: other (Tachycardia) Past Medical History - Past Medical History Medical history: Reports: asthma, coronary artery disease, hyperlipidemia, hypertension Surgical history: Reports: orthopedic, other Psychiatric history: Reports: no psych history - Social History Smoking Status: Former smoker Smokeless Tobacco Status: No Alcohol use: Reports: unknown Drug use: Reports: none Physical Exam - General Limitations: no limitations General appearance: alert, in no apparent distress - Head Head exam: atraumatic, normocephalic, normal inspection - Eye Eye exam: Present: normal appearance, PERRL, EOMI - Neck Neck exam: Present: normal inspection, full ROM, trachea midline. Absent: tenderness - Chest Chest inspection: Present: normal inspection, symmetric chest wall rise - Respiratory Respiratory exam: Present: normal lung sounds bilaterally - Cardiovascular Cardiovascular exam: Present: tachycardia, irregular rhythm - Abdominal Exam Abdominal exam: Present: soft, Non-Tender. Absent: tenderness, distention, guarding, rebound, rigidity - Extremities Exam Extremities exam: Present: normal inspection, full ROM. Absent: tenderness, pedal edema - Neurological Exam Neurological exam: Present: alert - Psychiatric Psychiatric exam: Present: normal affect - Skin Skin exam: Present: warm, dry Course Vital Signs Temperature 98.3 F 01/03/18 03:05 Pulse Rate 135 01/03/18 03:05 Respiratory Rate 26 01/03/18 03:05 Blood Pressure 125/102 01/03/18 03:05 O2 Sat by Pulse Oximetry 92 01/03/18 03:05 Temperature 98.3 F 01/03/18 03:05 Pulse Rate 119 01/03/18 07:43 Respiratory Rate 16 01/03/18 07:43 Blood Pressure 77/60 01/03/18 07:43 O2 Sat by Pulse Oximetry 98 01/03/18 07:43 Oxygen Delivery Oxygen Delivery Nasal Cannula Medical Decision Making - [facility] Narrative Medical decision making narrative: This is an 82-year-old male with atrial fibrillation with rapid ventricular response. Because he already takes metoprolol, 2 doses of metoprolol were given, 5 mg each , and attempt to provide rate control. This was not effective. Diltiazem was given with better rate control, but cause significant decreases in his blood pressure His blood pressure recovered with IV fluid, and calcium gluconate was ordered to help reverse the calcium channel elaine I discussed his case with the hospitalist, who accepted him for admission, but asked that cardiology be consulted for another medicine to use for rate control. Patient was signed out to Dr. Rodriguez at 750 with cardiology input pending - Lab Data Result diagrams: 01/03/18 03:35 01/03/18 03:35 Lab Results 01/03/18 01/03/18 Range/Units 03:35 03:35 WBC 9.8 (4.3-11.1) K/mcL RBC 3.85 L (4.19-5.50) M/mcL Hgb 12.8 L (12.9-16.9) g/dL Hct 40.3 (37.5-50.1) % MCV 104.7 H (83.0-100.0) fL MCH 33.2 (28.0-33.3) pg MCHC 31.8 (31.6-35.5) g/dL RDW 14.1 (11.5-14.5) % Plt Count 145 (140-400) K/mcL MPV 10.9 (9.4-12.4) fL Immature Gran % 0.3 (0-4) % Seg Neutrophils % 69.1 % Lymphocytes % 17.5 % Monocytes % 11.6 % Eosinophils % 1.3 % Basophils % 0.2 % Neutrophils # 6.8 (1.6-8.9) K/mcL Lymphocytes # 1.7 (0.6-4.6) K/mcL Monocytes # 1.1 (0.0-1.3) K/mcL Eosinophils # 0.1 (0.0-0.6) K/mcL Basophils # 0.0 (0.0-0.2) K/mcL Sodium 137 (136-145) mEq/L Potassium 4.8 (3.5-5.1) mEq/L Chloride 96 L (98-107) mEq/L Carbon Dioxide 31 H (23-29) mEq/L BUN 41 H (8-23) mg/dL Creatinine 2.08 H (0.70-1.30) mg/dL Est GFR ( Amer) 37 L (> 60) Est GFR (Non-Af Amer) 31 L (> 60) BUN/Creatinine Ratio 20 (6-26) Glucose 135 H (70-105) mg/dL Calculated Osmolality 296 (280-300) Calcium 9.2 (8.6-10.3) mg/dL Troponin I < 0.03 (< 0.04) ng/mL TSH 1.834 (0.340-5.600) mcIU/mL - Radiology Data Radiology results reviewed: Yes I reviewed the patient's radiology results. Chest x-ray showed no evidence of pneumonia - EKG Data EKG #1 EKG attestation: Yes I reviewed and interpreted this EKG. EKG results narrative: ECG showed atrial fibrillation at 133 bpm, slight ST elevations in 2 and aVF, normal axis, normal QT
[2018-01-03 03:45] LABS: Basophils % 0.2 %; Eosinophils # 0.1 K/mcL (0.0-0.6); Eosinophils % 1.3 %; Hematocrit 40.3 % (37.5-50.1); Hemoglobin 12.8 g/dL (12.9-16.9); Immature Granulocytes % 0.3 % (0-4); Lymphocytes # 1.7 K/mcL (0.6-4.6); Lymphocytes % 17.5 %; Mean Corpuscular HGB Conc 31.8 g/dL (31.6-35.5); Mean Corpuscular Hemoglobin 33.2 pg (28.0-33.3); Mean Corpuscular Volume 104.7 fL (83.0-100.0); Mean Platelet Volume 10.9 fL (9.4-12.4); Monocytes # 1.1 K/mcL (0.0-1.3); Monocytes % 11.6 %; Neutrophils # 6.8 K/mcL (1.6-8.9); Platelet Count 145 K/mcL (140-400); Red Blood Count 3.85 M/mcL (4.19-5.50); Red Cell Distribution Width 14.1 % (11.5-14.5); Segmented Neutrophils % 69.1 %
[2018-01-03] MEDS: *HR* Metoprolol 5 MG/5 ML VIAL IVP SCH (04:02)
[2018-01-03 04:06] LABS: BUN/Creatinine Ratio 20 (6-26); Blood Urea Nitrogen 41 mg/dL (8-23); Calcium 9.2 mg/dL (8.6-10.3); Carbon Dioxide 31 mEq/L (23-29); Chloride 96 mEq/L (98-107); Glucose 135 mg/dL (70-105); Osmolality,Calculated 296 (280-300); Potassium 4.8 mEq/L (3.5-5.1); Sodium 137 mEq/L (136-145); eGFR For Non-African Americans 31 (> 60)
[2018-01-03 04:08] LABS: Troponin I < 0.03 ng/mL (< 0.04)
[2018-01-03 04:21] LABS: Thyroid Stimulating Hormone 1.834 mcIU/mL (0.340-5.600)
[2018-01-03] MEDS ORDERED: 0.9 % Sodium Chloride 500 ML IVC ONE (05:24)
[2018-01-03] MEDS ORDERED: Calcium Gluconate 2,000 MG in 0.9 % Sodium Chloride 100 ML IVPB ONE (06:57)
[2018-01-03] MEDS ORDERED: 0.9 % Sodium Chloride 500 ML ONE (07:35)
[2018-01-03] MEDS ORDERED: 0.9 % Sodium Chloride 1,000 ML IVC ONE ×2 (07:35→07:59)
--- NOTE | 2018-01-03 08:04 | Emergency Department Note ---
Disposition Clinical Impression: Atrial fibrillation with RVR, Acute kidney injury Medication reaction Qualifiers: Encounter type: initial encounter Qualified Code(s): T50.905A - Adverse effect of unspecified drugs, medicaments and biological substances, initial encounter Hypotension Qualifiers: Hypotension type: hypotension due to drug Qualified Code(s): I95.2 - Hypotension due to drugs Disposition: Still a Patient Condition: Fair [facility]errals: [facility]Primary Care Provider[facility] - Forms: ED Satisfaction Letter Time of Disposition: 11:31 General Adult HPI - General Chief complaint: ED Fall Stated complaint: fall Time Seen by Provider: 01/03/18 03:09 Source: patient, EMS Limitations: no limitations - History of Present Illness Pain Scale: 4 - Related Data Home Medications Medication Instructions Recorded Confirmed Allopurinol [Zyloprim 100 MG] 100 mg PO BID 09/24/17 01/03/18 Atorvastatin Calcium [Lipitor] 80 mg PO HS 09/24/17 01/03/18 Magnesium Hydroxide [Milk of 2,400 mg PO DAILY PRN 09/24/17 01/03/18 Magnesia] Polyethylene Glycol 3350 [MiraLAX 1 scoop PO DAILY 09/24/17 01/03/18 Powder Bulk 17.9 Oz] Primidone [Mysoline] 250 mg PO BID 09/24/17 01/03/18 Sennosides [Senokot] 8.6 mg PO BID 09/24/17 01/03/18 Spironolactone [Aldactone] 50 mg PO BID 09/24/17 01/03/18 Tamsulosin HCl [Flomax] 0.4 mg PO DAILY 09/24/17 01/03/18 Hydrophilic Ointment [Aquabase] 1 appl TP BID 01/03/18 01/03/18 Lisinopril [Zestril] 10 mg PO DAILY 01/03/18 01/03/18 Metoprolol [Lopressor] 25 mg PO BID 01/03/18 01/03/18 Simethicone [Gas-X] 160 mg PO DAILY PRN 01/03/18 01/03/18 Allergies Allergy/AdvReac Type Severity Reaction Status Date / Time morphine Allergy Itching Verified 11/16/17 13:15 naproxen [From Aleve] Allergy Itching Verified 11/16/17 13:15 Cardiovascular: Reports: other (Tachycardia) Past Medical History - Past Medical History Medical history: Reports: asthma, coronary artery disease, hyperlipidemia, hypertension Surgical history: Reports: orthopedic, other Psychiatric history: Reports: no psych history - Social History Smoking Status: Former smoker Smokeless Tobacco Status: No Alcohol use: Reports: unknown Drug use: Reports: none Physical Exam - General Limitations: no limitations General appearance: alert, in no apparent distress Course - Reevaluation(s) Reevaluation #1: Patient signed out pending rate control. Upon further questioning with the family he had a fall and hit his head. He said he had some swelling to the left side of his head. His blood pressures been running low. We will check a UA. Lactic and blood cultures. Head CT. Holding on admission and further rate control until we make sure the patient is not septic. He does have an acute kidney injury with a creatinine of 2. Time: 08:04 Reevaluation #2: Patient still hypotensive. IV fluids now running. Nurse repositioned IV. Patient will likely need IV pressors. Time: 09:47 Reevaluation #3: Called to room. Patient pulled out his IV and is wandering around the room. Patient placed back in bed. Soft wrist restraints placed. Nurses were starting IV at this time. We will give some IM Haldol. Time: 10:59 Additional Reevaluation(s): 1129. Patient's blood pressures improved almost 100 systolic at this time. Amiodarone infusing. Heparin started. Patient calmed down after IM Haldol. Remove restraints as appropriate. Case discussed with Dr. Barrientos and we are in agreement the patient is now appropriate for admission. - Consultations Consultation #1: Discussed with Dr. Bauer. Recommend starting amiodarone with the hopes of controlling his rate will control his blood pressure better. Starting heparin as per his request. We will monitor patient prior to moving to the floor. Time: 10:01 Consultation #2: Dr Barrientos accepts Time: 11:31 Vital Signs Temperature 98.3 F 01/03/18 03:05 Pulse Rate 135 01/03/18 03:05 Respiratory Rate 26 01/03/18 03:05 Blood Pressure 125/102 01/03/18 03:05 O2 Sat by Pulse Oximetry 92 01/03/18 03:05 Temperature 97.6 F 01/03/18 03:14 Pulse Rate 125 01/03/18 09:38 Respiratory Rate 20 01/03/18 09:38 Blood Pressure 73/49 01/03/18 09:38 O2 Sat by Pulse Oximetry 98 01/03/18 09:38 Oxygen Delivery Oxygen Delivery Nasal Cannula Medical Decision Making - Lab Data Result diagrams: 01/03/18 03:35 01/03/18 03:35 Lab Results 01/03/18 01/03/18 01/03/18 Range/Units 03:35 03:35 08:40 WBC 9.8 (4.3-11.1) K/mcL RBC 3.85 L (4.19-5.50) M/mcL Hgb 12.8 L (12.9-16.9) g/dL Hct 40.3 (37.5-50.1) % MCV 104.7 H (83.0-100.0) fL MCH 33.2 (28.0-33.3) pg MCHC 31.8 (31.6-35.5) g/dL RDW 14.1 (11.5-14.5) % Plt Count 145 (140-400) K/mcL MPV 10.9 (9.4-12.4) fL Immature Gran % 0.3 (0-4) % Seg Neutrophils % 69.1 % Lymphocytes % 17.5 % Monocytes % 11.6 % Eosinophils % 1.3 % Basophils % 0.2 % Neutrophils # 6.8 (1.6-8.9) K/mcL Lymphocytes # 1.7 (0.6-4.6) K/mcL Monocytes # 1.1 (0.0-1.3) K/mcL Eosinophils # 0.1 (0.0-0.6) K/mcL Basophils # 0.0 (0.0-0.2) K/mcL Sodium 137 (136-145) mEq/L Potassium 4.8 (3.5-5.1) mEq/L Chloride 96 L (98-107) mEq/L Carbon Dioxide 31 H (23-29) mEq/L BUN 41 H (8-23) mg/dL Creatinine 2.08 H (0.70-1.30) mg/dL Est GFR ( Amer) 37 L (> 60) Est GFR (Non-Af Amer) 31 L (> 60) BUN/Creatinine Ratio 20 (6-26) Glucose 135 H (70-105) mg/dL Calculated Osmolality 296 (280-300) Lactic Acid (0.5-2.2) mmol/L Calcium 9.2 (8.6-10.3) mg/dL Troponin I < 0.03 (< 0.04) ng/mL TSH 1.834 (0.340-5.600) mcIU/mL Urine Color Dark Yellow (Yellow) Urine Clarity Cloudy A (Clear) Urine pH 5.0 (5.0-8.0) pH Units Ur Specific Lipscomb 1.024 (1.010-1.025) Urine Protein Negative (Neg-Trace) mg/dL Urine Glucose (UA) Normal (Normal) mg/dL Urine Ketones Trace H (Negative) mg/dL Urine Blood Negative (Negative) Urine Nitrite Negative (Negative) Urine Bilirubin Small H (Negative) Urine Urobilinogen Normal (Normal) mg/dL Ur Leukocyte Esterase Negative (Negative) Urine Microscopic RBC 0-3 (0-3) per hpf Urine Microscopic WBC 0-3 (0-3) per hpf Ur Squamous Epith Cells Moderate H (None-Few) per lpf Amorphous Sediment Few (Few) Urine Bacteria None Seen (None-Few) per hpf Hyaline Casts Moderate H (None-Few) per lpf Ur Culture Indicated? NO (NO) 01/03/18 Range/Units 09:13 WBC (4.3-11.1) K/mcL RBC (4.19-5.50) M/mcL Hgb (12.9-16.9) g/dL Hct (37.5-50.1) % MCV (83.0-100.0) fL MCH (28.0-33.3) pg MCHC (31.6-35.5) g/dL RDW (11.5-14.5) % Plt Count (140-400) K/mcL MPV (9.4-12.4) fL Immature Gran % (0-4) % Seg Neutrophils % % Lymphocytes % % Monocytes % % Eosinophils % % Basophils % % Neutrophils # (1.6-8.9) K/mcL Lymphocytes # (0.6-4.6) K/mcL Monocytes # (0.0-1.3) K/mcL Eosinophils # (0.0-0.6) K/mcL Basophils # (0.0-0.2) K/mcL Sodium (136-145) mEq/L Potassium (3.5-5.1) mEq/L Chloride (98-107) mEq/L Carbon Dioxide (23-29) mEq/L BUN (8-23) mg/dL Creatinine (0.70-1.30) mg/dL Est GFR ( Amer) (> 60) Est GFR (Non-Af Amer) (> 60) BUN/Creatinine Ratio (6-26) Glucose (70-105) mg/dL Calculated Osmolality (280-300) Lactic Acid 1.0 (0.5-2.2) mmol/L Calcium (8.6-10.3) mg/dL Troponin I (< 0.04) ng/mL TSH (0.340-5.600) mcIU/mL Urine Color (Yellow) Urine Clarity (Clear) Urine pH (5.0-8.0) pH Units Ur Specific Lipscomb (1.010-1.025) Urine Protein (Neg-Trace) mg/dL Urine Glucose (UA) (Normal) mg/dL Urine Ketones (Negative) mg/dL Urine Blood (Negative) Urine Nitrite (Negative) Urine Bilirubin (Negative) Urine Urobilinogen (Normal) mg/dL Ur Leukocyte Esterase (Negative) Urine Microscopic RBC (0-3) per hpf Urine Microscopic WBC (0-3) per hpf Ur Squamous Epith Cells (None-Few) per lpf Amorphous Sediment (Few) Urine Bacteria (None-Few) per hpf Hyaline Casts (None-Few) per lpf Ur Culture Indicated? (NO) - Radiology Data Radiology results reviewed: Yes I reviewed the patient's radiology results. Chest X-Ray 01/03/18 03:18 IMPRESSION: Bibasilar atelectasis. Cardiomegaly. D/ / Portia Mantilla MD / Portia Mantilla MD Interpreting Provider: Portia Mantilla MD Head CT 01/03/18 07:59 IMPRESSION: No acute intracranial abnormality. Mild to moderate parenchymal volume loss. Mild chronic microvascular disease. D/ / Zion Levi MD / Zion Levi MD Interpreting Provider: Zion Levi MD Critical Care Time Critical Care Time: Yes Total Critical Care Time: 45 Attestation: Critical care performed: Time is exclusive of separately billable procedures. Time includes: direct patient care, patient reassessment, coordination of patient care, interpretation of data (laboratory data, radiology data, and respiratory data), review of patient's medical records, medical consultation and documentation of patient care. Procedures included in critical care time: Procedures excluded from critical care time:
[2018-01-03 09:06] LABS: Bilirubin,Urine Small (Negative); Blood,Urine Negative (Negative); Clarity,Urine Cloudy (Clear); Color,Urine Dark Yellow (Yellow); Glucose,Urine (UA) Normal (Normal); Ketones,Urine Trace mg/dL (Negative); Leukocyte Esterase,Urine Negative (Negative); Nitrite,Urine Negative (Negative); Protein,Urine Negative (Neg-Trace); Specific Gravity,Urine 1.024 (1.010-1.025); Urobilinogen,Urine Normal (Normal)
[2018-01-03 09:08] LABS: Bacteria,Urine None Seen per hpf (None-Few); RBC,Urine 0-3 per hpf (0-3); WBC,Urine 0-3 per hpf (0-3)
[2018-01-03 09:16] LABS: Hyaline Casts,Urine Moderate per lpf (None-Few); Squamous Epithelial Cell,Urine Moderate per lpf (None-Few)
[2018-01-03 09:17] LABS: Amorphous Sediment,Urine Few (Few)
[2018-01-03] MEDS ORDERED: Amiodarone Premix 150 MG/100 ML BAG IVPB ONE (09:58)
[2018-01-03] MEDS ORDERED: Amiodarone Premix 360 MG/200 ML BAG IVC ONE (09:58)
[2018-01-03] MEDS ORDERED: *HR* Heparin 5,000 UNIT/ML VIAL IVP PRN ×2 (10:00)
[2018-01-03] MEDS ORDERED: *HR* Heparin 5,000 UNIT/ML VIAL IVP ONE (10:00)
[2018-01-03] MEDS ORDERED: Haloperidol Lactate 5 MG/ML VIAL IM ONE (10:48)
[2018-01-03 11:35] LABS: Heparin anti-factor XA UFH 0.03 IU/mL (0.30-0.70); INR 1.1; Prothrombin Time 12.8 Seconds (9.4-12.1)
[2018-01-03 11:38] LABS: Activated Partial Thrombo Time 30.6 Seconds (26.0-36.0)
[2018-01-03] MEDS: Heparin 25,000 UNIT/500 ML D5W 25,000 UNIT/500 ML BAG IVC SCH (12:20)
[2018-01-03] MEDS ORDERED: MOM Conc 10 ML UD.LIQ PO PRN (13:22)
[2018-01-03] MEDS ORDERED: Naloxone 0.4 MG/ML INJ IVP PRN (13:25)
--- NOTE | 2018-01-03 13:42 | Internal Med History&Physical ---
Date of Encounter: 01/03/18 Time of Encounter: 13:41 Internal Medicine - H&P: HPI Chief complaint: Fall and weakness Admitted From: Home Plans for Post Hospital Care: Transfer [facility] Facility History of present illness: Mr. Kelly is a 82 year old male who lives in assisted living who was brought in after a fall. Patient stood up to go to transfer from bed to his chair and got weak and fell. Patient is currently under the effect of Haldol which he had gotten for having some confusion noted on the day and his history is not very clear. Most of the history is obtained from his daughter at the bedside who states that the patient did have an episode of weakness that was documented at assisted living and he ended up falling. She is of the opinion that the patient did not have lose a pulse of consciousness but did end up falling against the wall and hitting his head against the wall and then landed on his buttocks. He was brought to the ER and was found to have acute renal failure with an elevated creatinine of 2. His baseline is less than 1 unit he also has chronic constipation and takes [id number] laxatives and sometimes ends up overdoing it because for the last 3-4 days he has been having loose stools. The patient did answer to me when asked about this and said he this morning he had 4 loose stools. He denies any fevers or chills or shakes but did feel weakness and lethargy diffusely. In the ER the patient was found to be in atrial fibrillation with RVR and initial trial of controlling with beta blockers 2 doses was unsuccessful. Then subsequently he went on a diltiazem drip and his blood pressure became significantly decreased. He then was given a reversal agent for diltiazem and given IV fluids which improved his blood pressure. Cartilage was contacted and we ended up putting him on amiodarone drip. He is now flipped into normal sinus rhythm and is currently in normal sinus rhythm. He does have a heparin drip in place and also amiodarone drip. He is now being admitted to the hospital medicine service on stepdown unit. He himself denies any chest pain or shortness of breath at this point but does complain of his bottom hurting. Past Med Surg Social Fam HX - Past Medical History Medical history: asthma, coronary artery disease, hyperlipidemia, hypertension Additional medical history: Gout Psychiatric history: no psych history - Past Surgical History Surgical History: orthopedic, other Additional surgical history: Left hip surgery, Back Surgery x 2 - Social History Smoking Status: Former smoker Smokeless Tobacco Status: No Alcohol use: unknown Drug use: none - Family History Sister Hx Family Endocrine Disorder: Yes (DM) Internal Medicine - H&P: Meds Allopurinol [Zyloprim 100 MG] 100 mg PO BID 09/24/17 [History] Atorvastatin Calcium [Lipitor] 80 mg PO HS 09/24/17 [History] Magnesium Hydroxide [Milk of Magnesia] 2,400 mg PO DAILY PRN 09/24/17 [History] Polyethylene Glycol 3350 [MiraLAX Powder Bulk 17.9 Oz] 1 scoop PO DAILY [History] Primidone [Mysoline] 250 mg PO BID 09/24/17 [History] Sennosides [Senokot] 8.6 mg PO BID 09/24/17 [History] Spironolactone [Aldactone] 50 mg PO BID 09/24/17 [History] Tamsulosin HCl [Flomax] 0.4 mg PO DAILY 09/24/17 [History] Hydrophilic Ointment [Aquabase] 1 appl TP BID 01/03/18 [History] Lisinopril [Zestril] 10 mg PO DAILY 01/03/18 [History] Metoprolol [Lopressor] 25 mg PO BID 01/03/18 [History] Simethicone [Gas-X] 160 mg PO DAILY PRN 01/03/18 [History] 3 Allergy/AdvReac Type Severity Reaction Status Date / Time morphine Allergy Itching Verified 11/16/17 13:15 naproxen [From Aleve] Allergy Itching Verified 11/16/17 13:15 ROS unobtainable: due to mental status All Systems PM: A 10-system review of systems was performed and is negative for pertinent findings except as documented above in the HPI. - Constitutional Vitals: Temp Pulse Resp BP Pulse Ox 97.6 F 65 16 94/63 97 01/03/18 10:50 01/03/18 13:39 01/03/18 13:39 01/03/18 13:39 01/03/18 13:39 Exam: GENERAL: Alert, answers questions but a and O 1, does make some random statements which are not correlating EYES: PERRLA, EOMI EARS: External ears normal, canals clear OROPHARYNX: Lips, mucosa, and tongue normal. Teeth and gums normal. Oropharynx normal. NECK: No jugulovenous distention, No carotid bruits, Carotid pulse normal contour, Supple LUNGS: Lungs clear to auscultation, Good diaphragmatic excursion CARDIAC: Normal S1 and S2; no rubs, murmurs, or gallops ABDOMEN: Abdomen soft, non-tender, BS normal, No masses or organomegaly EXTREMITIES: Extremities normal, no deformities, edema, clubbing or skin discoloration. Good capillary refill., No ulcers NEURO: Gait not tested. Reflexes normal and symmetric. Power is equal in both upper and lower extremities but is graded at best at 3/5 Back examination-erythema around the sacral region stage I sacral decubitus. PULSES: 2+ radial, 2+ carotid Rest of the exam is non contributory Internal Med - H&P Results - Labs CBC & Chem 7: 01/03/18 03:35 01/03/18 03:35 Labs: Short CBC 01/03/18 Range/Units 03:35 WBC 9.8 (4.3-11.1) K/mcL Hgb 12.8 L (12.9-16.9) g/dL Hct 40.3 (37.5-50.1) % Plt Count 145 (140-400) K/mcL Neutrophils # 6.8 (1.6-8.9) K/mcL BMP 01/03/18 03:35 Sodium 137 Potassium 4.8 Chloride 96 L Carbon Dioxide 31 H BUN 41 H Creatinine 2.08 H Glucose 135 H Calcium 9.2 Cardiac Enzymes 01/03/18 Range/Units 03:35 Troponin I < 0.03 (< 0.04) ng/mL Urine 01/03/18 Range/Units 08:40 Urine Color Dark Yellow (Yellow) Urine Clarity Cloudy A (Clear) Urine pH 5.0 (5.0-8.0) pH Units Ur Specific Yoder 1.024 (1.010-1.025) Urine Protein Negative (Neg-Trace) mg/dL Urine Glucose (UA) Normal (Normal) mg/dL - EKG Data -: EKG Interpreted by Myself (Initially in A. fib. Repeat EKG is pending) - Impressions ITS Impressions Chest X-Ray 01/03/18 03:18 IMPRESSION: Bibasilar atelectasis. Cardiomegaly. D/ / Portia Mantilla MD / Porita Mantilla MD Interpreting Provider: Portia Mantilla MD Head CT 01/03/18 07:59 IMPRESSION: No acute intracranial abnormality. Mild to moderate parenchymal volume loss. Mild chronic microvascular disease. D/ / Zion Levi MD / Zion Levi MD Interpreting Provider: Zion Levi MD - Diagnostic Studies Chest x-ray Status: image reviewed by me (No focal consolidations seen) CT scan - head Additional comments: Negative for acute intracranial pathology - Assessment and plan (1) Metabolic encephalopathy Current Visit: Yes Status: Acute Assessment and plan: Patient presents with acute metabolic encephalopathy Most likely etiology being and dehydration/acute renal failure in the setting of poor by mouth intake as well as overuse of laxatives. Currently the patient also has received Haldol dosing which is contrary to his metabolic encephalopathy. White count is within normal limits and his urinalysis does not seem suspicious for UTI at this point. Cultures have been sent and will be trending them in the hospital. IV fluids have been given and we will be monitoring it closely. Continue neuro checks on the floor. Head CT is negative for an acute intracranial event. He will need occupational therapy and physical therapy and most likely end up needing placement as well. (2) Acute renal failure (ARF) Current Visit: Yes Status: Acute Assessment and plan: In the setting of poor nutrition as well as overzealous use of laxatives. Continue IV hydration gradually and monitor closely on the floor. Consider checking orthostatic vitals once more stable. We will hold FRANK inhibitor and spironolactone. Continue beta elaine given atrial fibrillation Qualifiers: Acute renal failure type: unspecified Qualified Code(s): N17.9 - Acute kidney failure, unspecified (3) Atrial fibrillation with RVR Current Visit: Yes Status: Acute Assessment and plan: Failed initial attempts with beta elaine and Cardizem and also became hypotensive in the process. Currently on amiodarone drip and appears to have flipped back into sinus rhythm Consult cardiology. They have already been discussed with him the ER and will be seeing the patient on the floor. Initial troponins are negative and I will continue serial troponins 3. Place him on stepdown unit with telemetry monitoring. Currently he appears to be converted to sinus rhythm at least on the telemetry monitoring. I will check another EKG to make sure he is in sinus rhythm. Check 2-D echo Will continue home beta blockade use while in the hospital as well. He is also been started on heparin drip which I will continue pending cardiology evaluation. Consider stopping it if this was a one of episode and he is already converted. I am being told that there was a history of atrial fibrillation and is remote past for which she was ablated but I have not confirmed this yet. His daughter is unaware of this and so was the patient. (4) Hypotension Current Visit: Yes Status: Acute Assessment and plan: Happened due to poor by mouth intake as well as over use of laxatives. Continue gradual hydration and monitor closely. Check orthostatic vital signs once more stable. Currently his blood pressure is in the low 100s systolic which is what his daughter claims to be his baseline blood pressure. Qualifiers: Hypotension type: other hypotension type Qualified Code(s): I95.89 - Other hypotension (5) Falls Current Visit: No Status: Acute Assessment and plan: Extreme deconditioning and cachexia. Consult physical therapy and occupational therapy and most likely will need placement. There is evidence of poor by mouth intake and dehydration deconditioning. Patient is also complaining of pain in his sacral region and we will obtain an x -ray to rule out a fracture. Qualifiers: Encounter type: initial encounter Qualified Code(s): W19.XXXA - Unspecified fall, initial encounter (6) Sacral decubitus ulcer, stage II Current Visit: Yes Status: Acute Assessment and plan: This is a pre-existing problem. Patient continues to have stage II decubitus ulcers. I will consult wound care. Will need offloading and localized wound care (7) Code status needs review Current Visit: Yes Status: Acute Assessment and plan: Discussed CODE STATUS with the patient and his family at length. According to the daughter ,Patient does have CODE STATUS on file which I could not locate . However, upon discussing with her daughter who is also the next of kin, she would like him to be a DO NOT RESUSCITATE in the event of an emergency. He also does not wish to be intubated - Time Spent With Patient Total time spent is greater than 50% in coordination of care (as documented) at patient's floor/unit and/or counseling patient: Greater than 35 minutes - VTE Reasons for not Prescribing Prophylaxis: Not indicated-Anticoagulated or INR therapeutic
--- NOTE | 2018-01-03 14:45 | Event Note ---
Date of Encounter: 01/03/18 Time of Encounter: 14:44 - Cardiology Event Note Cardiology consulted for atrial fibrillation. Noted that he has converted to NSR and is on amiodarone. Continue amiodarone gtt. Further recommendations with full consult in AM.
[2018-01-03] MEDS: Amiodarone Premix 360 MG/200 ML BAG IVC SCH (18:32)
[2018-01-03] MEDS: Sennosides 8.6 MG TABLET PO SCH (21:04)
[2018-01-04 02:47] LABS: Basophils % 0.2 %; Eosinophils # 0.1 K/mcL (0.0-0.6); Eosinophils % 1.8 %; Hematocrit 33.6 % (37.5-50.1); Immature Granulocytes % 0.3 % (0-4); Lymphocytes # 0.8 K/mcL (0.6-4.6); Lymphocytes % 12.4 %; Mean Corpuscular HGB Conc 31.5 g/dL (31.6-35.5); Mean Corpuscular Hemoglobin 33.2 pg (28.0-33.3); Mean Corpuscular Volume 105.3 fL (83.0-100.0); Mean Platelet Volume 11.2 fL (9.4-12.4); Monocytes # 0.7 K/mcL (0.0-1.3); Monocytes % 10.7 %; Neutrophils # 4.9 K/mcL (1.6-8.9); Platelet Count 105 K/mcL (140-400); Red Blood Count 3.19 M/mcL (4.19-5.50); Red Cell Distribution Width 13.8 % (11.5-14.5); Segmented Neutrophils % 74.6 %
[2018-01-04 02:48] LABS: Hemoglobin 10.6 g/dL (12.9-16.9)
[2018-01-04] MEDS: *HR* Metoprolol 5 MG/5 ML VIAL IVP SCH (05:13)
[2018-01-04] MEDS: Sennosides 8.6 MG TABLET PO SCH ×3 (07:49→20:28)
[2018-01-04] MEDS: Amiodarone Premix 360 MG/200 ML BAG IVC SCH (07:50)
[2018-01-04] MEDS: Heparin 25,000 UNIT/500 ML D5W 25,000 UNIT/500 ML BAG IVC SCH (11:46)
--- NOTE | 2018-01-04 11:49 | Internal Med Progress Note ---
Hospitalist Progress Note - Encounter Date of Encounter: 01/04/18 Time of Encounter: 11:46 - Subjective Interval History: Patient seen and examined at bedside. Patient no acute overnight events. Patient is in normal sinus rhythm now. On amiodarone drip. Denies any chest pain, shortness of breath, nausea, vomiting, diarrhea. - Exam Vitals: Temp Pulse Resp BP Pulse Ox 98.4 F 70 18 118/58 94 01/04/18 07:22 01/04/18 07:22 01/04/18 07:22 01/04/18 11:33 01/04/18 07:22 Exam: Constitutional: No acute distress, Alert Psych: AAO x 3 HEENT: NCAT, EOMI Neck: supple, no JVD Cardio: regular rate and rhythm, +s1s2, no murmurs/rubs/gallops, no JVD Resp: Coarse breath sounds in bases Abd: soft, non tender/non distended, positive bowel sounds Extremities: no clubbing/cyanosis/edema appreciated Neuro: no focal deficits appreciated, very slow speech - Assessment and Plan (1) Atrial fibrillation with RVR Current Visit: Yes Status: Acute Assessment and Plan: 01/03/18 from previous provider: Failed initial attempts with beta elaine and Cardizem and also became hypotensive in the process. Currently on amiodarone drip and appears to have flipped back into sinus rhythm Consult cardiology. They have already been discussed with him the ER and will be seeing the patient on the floor. Initial troponins are negative and I will continue serial troponins 3. Place him on stepdown unit with telemetry monitoring. Currently he appears to be converted to sinus rhythm at least on the telemetry monitoring. I will check another EKG to make sure he is in sinus rhythm. Check 2-D echo Will continue home beta blockade use while in the hospital as well. He is also been started on heparin drip which I will continue pending cardiology evaluation. Consider stopping it if this was a one of episode and he is already converted. I am being told that there was a history of atrial fibrillation and is remote past for which she was ablated but I have not confirmed this yet. His daughter is unaware of this and so was the patient. 01/04/18 -Cardiology consult pending -in normal sinus rhythm -Echo pending -Continue beta elaine; currently receiving amiodarone load -Continue IV heparin; however patient may be a good candidate for aspirin only use but will check xarelto pricing (2) Falls Current Visit: No Status: Acute Assessment and Plan: 01/03/18-Extreme deconditioning and cachexia. Consult physical therapy and occupational therapy and most likely will need placement. There is evidence of poor by mouth intake and dehydration deconditioning. Patient is also complaining of pain in his sacral region and we will obtain an x -ray to rule out a fracture. 01/04/18 -Imaging of pelvis negative for acute process -May need physical therapy (3) Hypotension Current Visit: Yes Status: Acute Assessment and Plan: 01/03/18 Happened due to poor by mouth intake as well as over use of laxatives. Continue gradual hydration and monitor closely. Check orthostatic vital signs once more stable. Currently his blood pressure is in the low 100s systolic which is what his daughter claims to be his baseline blood pressure. 01/04/18 Blood pressure is stable (4) Metabolic encephalopathy Current Visit: Yes Status: Acute Assessment and Plan: 01/03/18 Patient presents with acute metabolic encephalopathy Most likely etiology being and dehydration/acute renal failure in the setting of poor by mouth intake as well as overuse of laxatives. Currently the patient also has received Haldol dosing which is contrary to his metabolic encephalopathy. White count is within normal limits and his urinalysis does not seem suspicious for UTI at this point. Cultures have been sent and will be trending them in the hospital. IV fluids have been given and we will be monitoring it closely. Continue neuro checks on the floor. Head CT is negative for an acute intracranial event. He will need occupational therapy and physical therapy and most likely end up needing placement as well. 01/04/18 -Mental status seems improved the patient is appropriate and pleasant with conversation (5) Acute renal failure (ARF) Current Visit: Yes Status: Acute Assessment and Plan: -In the setting of poor nutrition as well as overzealous use of laxatives. -Continue IV hydration gradually and monitor closely on the floor. -We will hold FRANK inhibitor and spironolactone. Continue beta elaine given atrial fibrillation -check bmp now and in AM (6) Sacral decubitus ulcer, stage II Current Visit: Yes Status: Acute Assessment and Plan: This is a pre-existing problem. Patient continues to have stage II decubitus ulcers.Will need offloading and localized wound care -wound care consult (7) Code status needs review Current Visit: Yes Status: Acute Assessment and Plan: from previous provider on 01/03/18 Discussed CODE STATUS with the patient and his family at length. According to the daughter ,Patient does have CODE STATUS on file which I could not locate . However, upon discussing with her daughter who is also the next of kin, she would like him to be a DO NOT RESUSCITATE in the event of an emergency. He also does not wish to be intubated DVT Prophylaxis: iv heparin - Time Spent with Patient Total time spent is greater than 50% in coordination of care (as documented) at patient's floor/unit and/or counseling patient: less than 15 minutes Plan of Care Discussed with: patient Internal Medicine: Result - Labs CBC & Chem 7: 01/04/18 02:11 01/03/18 03:35 Labs: Short CBC 01/04/18 Range/Units 02:11 WBC 6.5 (4.3-11.1) K/mcL Hgb 10.6 L D (12.9-16.9) g/dL Hct 33.6 L (37.5-50.1) % Plt Count 105 L (140-400) K/mcL Neutrophils # 4.9 (1.6-8.9) K/mcL Cardiac Enzymes 01/03/18 01/04/18 Range/Units 18:37 02:11 Troponin I 0.04 H* 0.03 (< 0.04) ng/mL - ABG Interpretation ABG results: PT/INR, D-dimer PT 12.8 Seconds (9.4-12.1) H 01/03/18 11:17 - VTE Reasons for not Prescribing Prophylaxis: Not indicated-Anticoagulated or INR therapeutic Consult Discharge Plan - Plan [facility]errals: [facility]Primary Care Provider[facility] - 01/11/18 10:15 am (2) Falls Qualifiers: Encounter type: initial encounter Qualified Code(s): W19.XXXA - Unspecified fall, initial encounter (3) Hypotension Qualifiers: Hypotension type: other hypotension type Qualified Code(s): I95.89 - Other hypotension (5) Acute renal failure (ARF) Qualifiers: Acute renal failure type: unspecified Qualified Code(s): N17.9 - Acute kidney failure, unspecified
[2018-01-04 13:02] LABS: Folate 16.6 ng/mL (3.0-16.0)
[2018-01-04 13:11] LABS: BUN/Creatinine Ratio 29 (6-26); Blood Urea Nitrogen 38 mg/dL (8-23); Carbon Dioxide 29 mEq/L (23-29); Chloride 104 mEq/L (98-107); Glucose 119 mg/dL (70-105); Osmolality,Calculated 298 (280-300); Potassium 4.8 mEq/L (3.5-5.1); Sodium 139 mEq/L (136-145); eGFR For Non-African Americans 53 (> 60)
--- NOTE | 2018-01-04 14:17 | Cardiology Consult Note ---
Date of Encounter: 01/04/18 Time of Encounter: 14:15 Assessment and Plan (1) Atrial fibrillation with RVR Current Visit: Yes Status: Acute Atrial fibrillation with RVR. Unknown time of onset. He was assymptomatic. May have been exacerbated by fall and dehydration. Converted to NSR on amiodarone. TTE today LVEF 60-65%. Normal LV chamber size, wall thickness and function. There is a small pericardial effusion present. There is no echocardiographic evidence of tamponade. See previous echocardiogram from 09/2017 for further details. Stop amiodarne and start beta-elaine. CHADS VASc =1-2 for age and possible h/o CAD. 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 Would recommended PT/OT eval and treatment prior to starting. Xarelto sent for avalos check by primary team. Would agree starting if fall risk does not prohibit. (2) Pericardial effusion Current Visit: No Status: Acute Small pericardial effusion unchanged. Discussion w patient/family: The assessment and plan as outlined above was discussed with the patient and/or family members who expressed understanding and agreement. All questions were answered. Thank you for involving us in the care of your patient. Please call with any questions. History of Present Illness Consult date: 01/04/18 Requesting physician: Rivera Smith Consult reason: new atrial fibrillation Chief complaint: Fall History of present illness: Mr. Kelly is a 82 year old male who denies significant past health history presents from home after fall. Per H&P she was noted to have CAD and HTN listed in health history. Patient denies. He was noted to have confusion in the ED and was given Haldol. He was also noted to have atrial fibrillation with RVR. He was given IV cardizem and his b/p dropped so he was started on amiodarone IV gtt. He did convert to NSR. He denies prior history of afib. Denies chest pain, palpitations, or SOB. Denies othopnea, PND, or edema. Past Med Surg Social Fam HX - Past Medical History Medical history: no medical history (patient denies, no records here, CAD on HPI ) Additional medical history: Gout Psychiatric history: no psych history - Past Surgical History Surgical History: orthopedic, other Additional surgical history: Left hip surgery, Back Surgery x 2 - Social History Smoking Status: Former smoker Smokeless Tobacco Status: No Alcohol use: unknown Drug use: none - Family History Sister Hx Family Endocrine Disorder: Yes (DM) Medications and Allergies Allopurinol [Zyloprim 100 MG] 100 mg PO BID 09/24/17 [History] Atorvastatin Calcium [Lipitor] 80 mg PO HS 09/24/17 [History] Magnesium Hydroxide [Milk of Magnesia] 2,400 mg PO DAILY PRN 09/24/17 [History] Polyethylene Glycol 3350 [MiraLAX Powder Bulk 17.9 Oz] 1 scoop PO DAILY [History] Primidone [Mysoline] 250 mg PO BID 09/24/17 [History] Sennosides [Senokot] 8.6 mg PO BID 09/24/17 [History] Spironolactone [Aldactone] 50 mg PO BID 09/24/17 [History] Tamsulosin HCl [Flomax] 0.4 mg PO DAILY 09/24/17 [History] Hydrophilic Ointment [Aquabase] 1 appl TP BID 01/03/18 [History] Lisinopril [Zestril] 10 mg PO DAILY 01/03/18 [History] Metoprolol [Lopressor] 25 mg PO BID 01/03/18 [History] Simethicone [Gas-X] 160 mg PO DAILY PRN 01/03/18 [History] 3 Allergy/AdvReac Type Severity Reaction Status Date / Time morphine Allergy Itching Verified 11/16/17 13:15 naproxen [From Aleve] Allergy Itching Verified 11/16/17 13:15 All Systems Review: The remainder of the systems were reviewed and are negative Physical Examination Vital Signs, Last 4 Hours Temp Pulse Resp BP Pulse Ox 01/04/18 12:01 98.6 F 77 18 105/59 91 01/04/18 11:33 118/58 General: Conversant, No Apparent Distress, Other (Oriented x3 but appears to be confused) HEENT: Atraumatic, Normocephaly, Mucus Membranes Moist Neck: No JVD, Normal carotid pulses Cardiac: Reg Rate and Rhythm, Normal S1 and S2, No Murmur Lungs: Normal Breath Sounds, No Wheeze, Rales, Rhonchi Neuro: Alert and responsive, No focal deficits noted Abdomen: Soft, Non-Tender Skin: No rashes noted on visualized skin Musculoskeletal: No Chest Wall Tenderness Extremities: No Clubbing, No Cyanosis, No Edema, Normal Pulses Results 01/04/18 02:11 01/04/18 12:26 Lab Results 01/03/18 01/04/18 01/04/18 18:37 02:11 02:11 WBC 6.5 Hgb 10.6 L D Hct 33.6 L Plt Count 105 L Sodium Potassium Chloride Carbon Dioxide BUN Creatinine Glucose Calcium Troponin I 0.04 H* 0.03 B-Natriuretic Peptide 01/04/18 01/04/18 02:11 12:26 WBC Hgb Hct Plt Count Sodium 139 Potassium 4.8 Chloride 104 Carbon Dioxide 29 BUN 38 H Creatinine 1.29 Glucose 119 H Calcium 8.0 L Troponin I B-Natriuretic Peptide 411 H - Imaging and Cardiology Echo: report reviewed - EKG Interpretation EKG results cardiology: personally reviewed Consult Discharge Plan - Plan Referrals: ANNETTE,PCP [Primary Care Provider] - 01/11/18 10:15 am
[2018-01-05 04:51] LABS: Basophils % 0.3 %; Eosinophils # 0.4 K/mcL (0.0-0.6); Eosinophils % 5.4 %; Hematocrit 33.5 % (37.5-50.1); Hemoglobin 10.6 g/dL (12.9-16.9); Immature Granulocytes % 0.3 % (0-4); Lymphocytes # 1.2 K/mcL (0.6-4.6); Lymphocytes % 18.2 %; Mean Corpuscular HGB Conc 31.6 g/dL (31.6-35.5); Mean Corpuscular Hemoglobin 32.7 pg (28.0-33.3); Mean Corpuscular Volume 103.4 fL (83.0-100.0); Mean Platelet Volume 11.5 fL (9.4-12.4); Monocytes # 0.6 K/mcL (0.0-1.3); Monocytes % 9.2 %; Neutrophils # 4.5 K/mcL (1.6-8.9); Platelet Count 125 K/mcL (140-400); Red Blood Count 3.24 M/mcL (4.19-5.50); Red Cell Distribution Width 13.8 % (11.5-14.5); Segmented Neutrophils % 66.6 %
[2018-01-05 05:17] LABS: BUN/Creatinine Ratio 31 (6-26); Blood Urea Nitrogen 36 mg/dL (8-23); Calcium 8.1 mg/dL (8.6-10.3); Carbon Dioxide 28 mEq/L (23-29); Chloride 105 mEq/L (98-107); Glucose 112 mg/dL (70-105); Osmolality,Calculated 299 (280-300); Potassium 4.4 mEq/L (3.5-5.1); Sodium 140 mEq/L (136-145); eGFR For Non-African Americans 60 (> 60)
[2018-01-05] MEDS: Sennosides 8.6 MG TABLET PO SCH ×2 (07:51→22:27)
--- NOTE | 2018-01-05 11:16 | Internal Med Progress Note ---
Hospitalist Progress Note - Encounter Date of Encounter: 01/05/18 Time of Encounter: 11:13 - Subjective Interval History: Patient seen and examined at bedside. Patient no acute overnight events. Patient is in normal sinus rhythm. PT/OT eval of pt consistent with significant fall risk with 2 person assist. Pt had difficulty swallowing this am and speech consulted for evaluation. Denies any palpitations, chest pain, shortness breath , nausea, vomiting or diarrhea. - Exam Vitals: Temp Pulse Resp BP Pulse Ox 98.4 F 70 18 121/74 2 01/05/18 07:32 01/05/18 07:32 01/05/18 07:32 01/05/18 07:32 01/05/18 08:02 Exam: Constitutional: No acute distress, Alert Psych: AAO x 3 HEENT: NCAT, EOMI Neck: supple, no JVD Cardio: regular rate and rhythm, +s1s2, no murmurs Resp: Coarse breath sounds in bases unchanged Abd: soft, non tender/non distended, positive bowel sounds Extremities: no clubbing/cyanosis/edema appreciated Neuro: no focal deficits appreciated, very slow speech which is baseline - Assessment and Plan (1) Atrial fibrillation with RVR Current Visit: Yes Status: Acute Assessment and Plan: Afib RVR now NSR; did not tolerate cardizem -amiodarone discontinued -cardio following -in normal sinus rhythm -Echo ef 60-65 percent -Continue beta elaine -pt significant fall risk per PT/OT and RN which pt endorses -dc hep gtt, start asa daily (2) Falls Current Visit: No Status: Acute Assessment and Plan: _PT/OT eval consistent with significant fall risk and 2 person assist -PT/OT rec ecf for rehab, will discuss with pts family -do not feel comfortable starting full dose anticoagulation with major fall risk , we will start daily aspirin and stop heparin drip (3) Hypotension Current Visit: Yes Status: Acute Assessment and Plan: resolved (4) Metabolic encephalopathy Current Visit: Yes Status: Acute Assessment and Plan: Likely toxic metabolic encephalopathy -Resolved (5) Acute renal failure (ARF) Current Visit: Yes Status: Acute Assessment and Plan: -In the setting of poor nutrition as well as overzealous use of laxatives. -Fluids discontinued -Renal function improved and normal now -We will hold FRANK inhibitor and spironolactone for now -Continue beta elaine given atrial fibrillation (6) Sacral decubitus ulcer, stage II Current Visit: Yes Status: Acute Assessment and Plan: This is a pre-existing problem. Patient continues to have stage II decubitus ulcers.Will need offloading and localized wound care -wound care consult (7) Code status needs review Current Visit: Yes Status: Acute Assessment and Plan: from previous provider on 01/03/18 Discussed CODE STATUS with the patient and his family at length. According to the daughter ,Patient does have CODE STATUS on file which I could not locate . However, upon discussing with her daughter who is also the next of kin, she would like him to be a DO NOT RESUSCITATE in the event of an emergency. He also does not wish to be intubated DVT Prophylaxis: iv heparin will change to sub q hep - Summary of Assessment and Plan Summary of Assessment and Plan: Due to the patient's significant fall risk with DC IV heparin and start aspirin only for atrial fibrillation, patient normal sinus rhythm currently. speech consulted for eval due to dysphagia - Time Spent with Patient Total time spent is greater than 50% in coordination of care (as documented) at patient's floor/unit and/or counseling patient: less than 15 minutes Plan of Care Discussed with: patient Internal Medicine: Result - Labs CBC & Chem 7: 01/05/18 03:56 01/05/18 03:56 Labs: Short CBC 01/05/18 Range/Units 03:56 WBC 6.8 (4.3-11.1) K/mcL Hgb 10.6 L (12.9-16.9) g/dL Hct 33.5 L (37.5-50.1) % Plt Count 125 L (140-400) K/mcL Neutrophils # 4.5 (1.6-8.9) K/mcL BMP 01/04/18 01/05/18 12:26 03:56 Sodium 139 140 Potassium 4.8 4.4 Chloride 104 105 Carbon Dioxide 29 28 BUN 38 H 36 H Creatinine 1.29 1.17 Glucose 119 H 112 H Calcium 8.0 L 8.1 L - ABG Interpretation ABG results: PT/INR, D-dimer PT 12.8 Seconds (9.4-12.1) H 01/03/18 11:17 - VTE Reasons for not Prescribing Prophylaxis: Not indicated-Anticoagulated or INR therapeutic Consult Discharge Plan - Plan Referrals: [facility] [Primary Care Provider] - 01/11/18 10:15 am Prescriptions: Rivaroxaban [Xarelto] 20 mg PO DAILY 30 Days #30 tablet (2) Falls Qualifiers: Encounter type: initial encounter Qualified Code(s): W19.XXXA - Unspecified fall, initial encounter (3) Hypotension Qualifiers: Hypotension type: other hypotension type Qualified Code(s): I95.89 - Other hypotension (5) Acute renal failure (ARF) Qualifiers: Acute renal failure type: unspecified Qualified Code(s): N17.9 - Acute kidney failure, unspecified
--- NOTE | 2018-01-05 11:48 | Cardiology Progress Note ---
Date of Encounter: 01/05/18 Time of Encounter: 11:44 Assessment and Plan (1) Atrial fibrillation with RVR Current Visit: Yes Status: Acute Atrial fibrillation with RVR. Unknown time of onset. He was asymptomatic. May have been exacerbated by fall and dehydration. Converted to NSR on amiodarone. TTE today LVEF 60-65%. Normal LV chamber size, wall thickness and function. There is a small pericardial effusion present. There is no echocardiographic evidence of tamponade. See previous echocardiogram from 09/2017 for further details. Amiodarone stopped and bb started. Remains NSR. CHADS VASc =1-2 for age and possible h/o CAD. Ideally he should be on intermediate AC although he presented with fall and deconditioning. PT eval confirms high risk for fall. Pt confused. He is not a good candidate for AC with high risk of recurrent fall. Continue asa. Out-pt f/u will be coordinated by [facility]. We will sign off. Call with questions. (2) Pericardial effusion Current Visit: No Status: Acute Small pericardial effusion unchanged from prior echo in September. Continue to monitor. Discussion w patient/family: The assessment and plan as outlined above was discussed with the patient and/or family members who expressed understanding and agreement. All questions were answered. Thank you for involving us in the care of your patient. Please call with any questions. Subjective Principal diagnosis: atrial fibrillation with RVR Interval history: Patient [place]. He is confused on my exam. Objective Vital Signs, Last 4 Hours Temp Pulse Resp BP Pulse Ox 01/05/18 11:17 98.2 F 65 18 125/71 95 01/05/18 08:02 2 General: Conversant, No Apparent Distress, Other (Confused) HEENT: Atraumatic, Normocephaly, Mucus Membranes Moist Neck: No JVD, Normal carotid pulses Cardiac: Reg Rate and Rhythm, Normal S1 and S2, No Murmur Lungs: Normal Breath Sounds, No Wheeze, Rales, Rhonchi Neuro: No focal deficits noted Abdomen: Soft Skin: No rashes noted on visualized skin Musculoskeletal: No Chest Wall Tenderness Extremities: No Clubbing, No Cyanosis, No Edema, Normal Pulses Results 01/05/18 03:56 01/05/18 03:56 Lab Results 01/04/18 01/05/18 01/05/18 12:26 03:56 03:56 WBC 6.8 Hgb 10.6 L Hct 33.5 L Plt Count 125 L Sodium 139 140 Potassium 4.8 4.4 Chloride 104 105 Carbon Dioxide 29 28 BUN 38 H 36 H Creatinine 1.29 1.17 Glucose 119 H 112 H Calcium 8.0 L 8.1 L - Imaging and Cardiology Echo: report reviewed - EKG Interpretation EKG results cardiology: personally reviewed - VTE Reasons for not Prescribing Prophylaxis: Not indicated-Anticoagulated or INR therapeutic Consult Discharge Plan - Plan Referrals: ANNETTE,PCP [Primary Care Provider] - 01/11/18 10:15 am Prescriptions: Rivaroxaban [Xarelto] 20 mg PO DAILY 30 Days #30 tablet
[2018-01-05] MEDS ORDERED: Haloperidol Lactate 5 MG/ML VIAL IM ONE (14:28)
[2018-01-05] MEDS ORDERED: Haloperidol Lactate 5 MG/ML VIAL ONE (14:32)
[2018-01-05] MEDS ORDERED: 0.9 % Sodium Chloride 500 ML IVC ONE (15:48)
[2018-01-05] MEDS ORDERED: *HR* Metoprolol 5 MG/5 ML VIAL IVP ONE (15:49)
[2018-01-05] MEDS ORDERED: Amiodarone Premix 360 MG/200 ML BAG IVC SCH (16:15)
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
[2018-01-05] MEDS: *HR* Heparin 5,000 UNIT/ML VIAL SQ SCH ×3 (17:00→22:42)
--- NOTE | 2018-01-05 17:29 | Electrocardiograph Report ---
[place] [id number] Test Date: 2018-01-03 Pat Name: Luis Kelly Department: [id number] Room: 2N11 Gender: Manager Fund: : [id number] Requested By: Kristy See Order Number: [id number] Reading MD: Leoncio Feliciano Measurements Intervals Power Rate: 133 P: VT: QRS: 49 QRSD: 102 T: 62 QT: 294 QTc: 429 Interpretive Statements Atrial fibrillation Electronically Signed On 01-05-2018 17:27:36 EDT by Leoncio Feliciano
[2018-01-05] MEDS: *HR* Amiodarone 200 MG TABLET PO SCH (18:17)
[2018-01-06] MEDS ORDERED: Haloperidol Lactate 5 MG/ML VIAL IM PRN (00:19)
[2018-01-06] MEDS ORDERED: Haloperidol Lactate 5 MG/ML VIAL ONE (00:23)
[2018-01-06 06:34] LABS: Basophils % 0.2 %; Eosinophils # 0.3 K/mcL (0.0-0.6); Hemoglobin 10.9 g/dL (12.9-16.9); Immature Granulocytes % 0.2 % (0-4); Lymphocytes # 1.1 K/mcL (0.6-4.6); Lymphocytes % 19.3 %; Mean Corpuscular HGB Conc 32.1 g/dL (31.6-35.5); Mean Corpuscular Hemoglobin 33.2 pg (28.0-33.3); Mean Corpuscular Volume 103.7 fL (83.0-100.0); Mean Platelet Volume 10.2 fL (9.4-12.4); Monocytes # 0.5 K/mcL (0.0-1.3); Monocytes % 9.6 %; Neutrophils # 3.6 K/mcL (1.6-8.9); Platelet Count 108 K/mcL (140-400); Red Blood Count 3.28 M/mcL (4.19-5.50); Red Cell Distribution Width 13.8 % (11.5-14.5); Segmented Neutrophils % 65.7 %
[2018-01-06 06:50] LABS: BUN/Creatinine Ratio 26 (6-26); Blood Urea Nitrogen 23 mg/dL (8-23); Carbon Dioxide 27 mEq/L (23-29); Chloride 107 mEq/L (98-107); Potassium 4.1 mEq/L (3.5-5.1); Sodium 140 mEq/L (136-145)
[2018-01-06 06:51] LABS: Calcium 8.4 mg/dL (8.6-10.3); Glucose 92 mg/dL (70-105); Osmolality,Calculated 293 (280-300); eGFR For Non-African Americans > 60 (> 60)
[2018-01-06] MEDS: *HR* Heparin 5,000 UNIT/ML VIAL SQ SCH ×2 (07:02→14:35)
[2018-01-06] MEDS: Sennosides 8.6 MG TABLET PO SCH ×2 (07:04→08:54)
[2018-01-06] MEDS: *HR* Amiodarone 200 MG TABLET PO SCH (08:53)
[2018-01-06] MEDS ORDERED: Aspirin 81 MG TAB.CHEW PO SCH (09:00)
--- NOTE | 2018-01-06 10:19 | Internal Med Progress Note ---
Hospitalist Progress Note - Encounter Date of Encounter: 01/06/18 Time of Encounter: 10:12 - Subjective Interval History: Patient seen and examined at bedside. Patient no acute overnight events. Pt had afib RVR episode yesterday afternoon along with agitation and agressive behavior. Pt was given 1mg IM haldol 2 times yesterday/overnight. Pt seems comfortable now. Pt now in NSR. Was started on PO amiodarone 200mg daily yesterday per cardio. Was supposed to have IV infusion but family declined. Pt did have hypotension with afib rvr that resovled with conversion to NSR. Pt also with difficulty swallowing food yesterday and with pills this AM; awaiting speech eval. Family states this is a frequent issue and would like him to have normal diet and accept risks but will await speech eval first. - Exam Vitals: Temp Pulse Resp BP Pulse Ox 97.7 F 71 17 151/79 90 01/06/18 07:41 01/06/18 07:41 01/06/18 07:41 01/06/18 07:41 01/06/18 09:07 Exam: Constitutional: No acute distress, Alert Psych: AAO x 2-3, more pleasant than yesterday HEENT: NCAT, EOMI Neck: supple, no JVD Cardio: regular rate and rhythm, +s1s2, no murmurs Resp: Coarse breath sounds Abd: soft, non tender/non distended, positive bowel sounds Extremities: no clubbing/cyanosis/edema appreciated Neuro: no focal deficits appreciated, very slow speech which is baseline - Assessment and Plan (1) Atrial fibrillation with RVR Current Visit: Yes Status: Acute Assessment and Plan: Afib RVR now NSR; did not tolerate cardizem -RVR yesterday, oral amio restarted; family declined IV amio as recommneded by cardio -cardi signed off -in normal sinus rhythm -Echo ef 60-65 percent -Continue beta elaine, po amio -pt significant fall risk per PT/OT and RN which pt endorses -continue asa only (2) Falls Current Visit: No Status: Acute Assessment and Plan: _PT/OT eval consistent with significant fall risk and 2 person assist -PT/OT rec ecf for rehab, will discuss with pts family -do not feel comfortable starting full dose anticoagulation with major fall risk , continue asa only for ac -ecf at dc (3) Hypotension Current Visit: Yes Status: Acute Assessment and Plan: resolved currently had breif episode of hypotension with afib rvr yesterday afternoon (4) Metabolic encephalopathy Current Visit: Yes Status: Acute Assessment and Plan: Likely toxic metabolic encephalopathy -Resolved -pt with intermitent confusion and agitation -likely delirium from change of environment which family states has happened prior (5) Acute renal failure (ARF) Current Visit: Yes Status: Acute Assessment and Plan: -In the setting of poor nutrition as well as overzealous use of laxatives. -Fluids discontinued -Renal function improved and normal now -We will hold FRANK inhibitor and spironolactone for now -Continue beta elaine given atrial fibrillation - stable (6) Sacral decubitus ulcer, stage II Current Visit: Yes Status: Acute Assessment and Plan: This is a pre-existing problem. Patient continues to have stage II decubitus ulcers.Will need offloading and localized wound care -wound care (7) Code status needs review Current Visit: Yes Status: Acute Assessment and Plan: from previous provider on 01/03/18 Discussed CODE STATUS with the patient and his family at length. According to the daughter ,Patient does have CODE STATUS on file which I could not locate . However, upon discussing with her daughter who is also the next of kin, she would like him to be a DO NOT RESUSCITATE in the event of an emergency. He also does not wish to be intubated DVT Prophylaxis: sub q hep - Summary of Assessment and Plan Summary of Assessment and Plan: Afib controlled, on bb and amio sig fall risk intermitent confusion and agitation consisten with delirium; avoid haldol if possible dc sitter dysphagia is chronic per family and states they will sign paper stating they will accept risks of aspiration but will await speech eval which is currently undergoing stable for dc to ecf when auth obtained - Time Spent with Patient Total time spent is greater than 50% in coordination of care (as documented) at patient's floor/unit and/or counseling patient: 25 - 35 minutes Plan of Care Discussed with: patient Internal Medicine: Result - Labs CBC & Chem 7: 01/06/18 06:10 01/06/18 06:10 Labs: Short CBC 01/06/18 Range/Units 06:10 WBC 5.4 (4.3-11.1) K/mcL Hgb 10.9 L (12.9-16.9) g/dL Hct 34.0 L (37.5-50.1) % Plt Count 108 L (140-400) K/mcL Neutrophils # 3.6 (1.6-8.9) K/mcL BMP 01/06/18 06:10 Sodium 140 Potassium 4.1 Chloride 107 Carbon Dioxide 27 BUN 23 Creatinine 0.88 Glucose 92 Calcium 8.4 L - ABG Interpretation ABG results: PT/INR, D-dimer PT 12.8 Seconds (9.4-12.1) H 01/03/18 11:17 - VTE Reasons for not Prescribing Prophylaxis: Not indicated-Anticoagulated or INR therapeutic Consult Discharge Plan - Plan Referrals: ANNETTE,PCP [Primary Care Provider] - 01/11/18 10:15 am Prescriptions: Rivaroxaban [Xarelto] 20 mg PO DAILY 30 Days #30 tablet (2) Falls Qualifiers: Encounter type: initial encounter Qualified Code(s): W19.XXXA - Unspecified fall, initial encounter (3) Hypotension Qualifiers: Hypotension type: other hypotension type Qualified Code(s): I95.89 - Other hypotension (5) Acute renal failure (ARF) Qualifiers: Acute renal failure type: unspecified Qualified Code(s): N17.9 - Acute kidney failure, unspecified
[2018-01-06 16:02] VITALS: BP 138/80
--- NOTE | 2018-01-06 16:43 | Physician Discharge Referral ---
ExtendedCare Referral Info Transfer To: ECF Provider in Charge after Transfer: PCP Institutional Level of Care: Skilled - Diagnosis (1) Atrial fibrillation with RVR Status: Acute (2) Falls Status: Acute (3) Hypotension Status: Acute (4) Metabolic encephalopathy Status: Acute (5) Acute renal failure (ARF) Status: Acute (6) Sacral decubitus ulcer, stage II Status: Acute (7) Code status needs review Status: Acute - Transfer Medications Prescriptions: Rivaroxaban [Xarelto] 20 mg PO DAILY 30 Days #30 tablet Home Medications: Allopurinol [Zyloprim 100 MG] 100 mg PO BID 09/24/17 [History] Atorvastatin Calcium [Lipitor] 80 mg PO HS 09/24/17 [History] Magnesium Hydroxide [Milk of Magnesia] 2,400 mg PO DAILY PRN 09/24/17 [History] Polyethylene Glycol 3350 [MiraLAX Powder Bulk 17.9 Oz] 1 scoop PO DAILY [History] Primidone [Mysoline] 250 mg PO BID 09/24/17 [History] Sennosides [Senokot] 8.6 mg PO BID 09/24/17 [History] Spironolactone [Aldactone] 50 mg PO BID 09/24/17 [History] Tamsulosin HCl [Flomax] 0.4 mg PO DAILY 09/24/17 [History] Hydrophilic Ointment [Aquabase] 1 appl TP BID 01/03/18 [History] Lisinopril [Zestril] 10 mg PO DAILY 01/03/18 [History] Metoprolol [Lopressor] 25 mg PO BID 01/03/18 [History] Simethicone [Gas-X] 160 mg PO DAILY PRN 01/03/18 [History] Rivaroxaban [Xarelto] 20 mg PO DAILY 30 Days #30 tablet 01/04/18 [Rx] Allergies/Adverse Reactions: 3 Allergy/AdvReac Type Severity Reaction Status Date / Time morphine Allergy Itching Verified 11/16/17 13:15 naproxen [From Aleve] Allergy Itching Verified 11/16/17 13:15 - Respiratory Orders Smoking Cessation: Smoking cessation has been advised. For more information, call the [place] Tobacco Quit Line at 2-726-EJBE-NOW. CERTIFICATION: I certify that the transfer of the above named patient to an Extended Care Facility is necessary for the continuing treatment of the diagnosis listed. The above information is true and accurate reflection of patient's current condition. Confidential - Redisclosure prohibited without a patient's written consent.
--- NOTE | 2018-01-06 16:52 | Discharge Summary ---
Date of Encounter: 01/06/18 Time of Encounter: 16:44 - Discharge Diagnosis (1) Atrial fibrillation with RVR Priority: Primary Status: Acute (2) Falls Priority: Secondary Status: Acute Qualifiers: Encounter type: initial encounter Qualified Code(s): W19.XXXA - Unspecified fall, initial encounter (3) Hypotension Priority: Secondary Status: Acute Qualifiers: Hypotension type: other hypotension type Qualified Code(s): I95.89 - Other hypotension (4) Metabolic encephalopathy Priority: Secondary Status: Acute (5) Acute renal failure (ARF) Priority: Secondary Status: Acute Qualifiers: Acute renal failure type: unspecified Qualified Code(s): N17.9 - Acute kidney failure, unspecified (6) Sacral decubitus ulcer, stage II Priority: Secondary Status: Acute (7) Code status needs review Priority: Secondary Status: Acute Hospital course: Mr. Kelly is a 82 year old male presented to the emergency room after a fall. It is believed to be a mechanical fall as the patient has severe arthritis limiting his mobility. Patient was found to have A. fib with RVR and was given Cardizem which he did not respond well to hypotension. The patient was admitted to the hospital for further further managment and evaluation. Cardiology saw the patients beta elaine was increased to 50mg metoprolol twice a day. Patient was initially loaded with IV amiodarone. Patient had one episode of paroxysmal atrial fibrillation with rapid ventricular response during hospitalization. Patient is remained in normal sinus rhythm for most of his stay. Due to the interaction between amiodarone and the patient's primidone , will discharge on increased dose of beta elaine alone. Patient's family was reluctant to start amiodarone anyway. Patient experienced mild delirium throughout his stay however this is improved prior to discharge. The patient's family states that he does better and rehabilitation that he does not Hospital regarding his mental status. The patient also had mild dysphagia and diet was changed by speech pathology. Patient is stable for discharge on , 01/06. Will be discharged to extended care facility for rehabilitation and physical therapy. Discharge discussed with: patient, nurse - Time Spent with Patient Total time spent providing and/or coordinating discharge services: Greater than 30 minutes - Discharge Medications Prescriptions: Aspirin 81 mg PO DAILY 30 Days #30 tab.chew Metoprolol [Lopressor] 50 mg PO BID 30 Days #60 tablet Home Medications: Allopurinol [Zyloprim 100 MG] 100 mg PO BID 09/24/17 [History] Atorvastatin Calcium [Lipitor] 80 mg PO HS 09/24/17 [History] Magnesium Hydroxide [Milk of Magnesia] 2,400 mg PO DAILY PRN 09/24/17 [History] Polyethylene Glycol 3350 [MiraLAX Powder Bulk 17.9 Oz] 1 scoop PO DAILY [History] Primidone [Mysoline] 250 mg PO BID 09/24/17 [History] Sennosides [Senokot] 8.6 mg PO BID 09/24/17 [History] Tamsulosin HCl [Flomax] 0.4 mg PO DAILY 09/24/17 [History] Hydrophilic Ointment [Aquabase] 1 appl TP BID 01/03/18 [History] Simethicone [Gas-X] 160 mg PO DAILY PRN 01/03/18 [History] Aspirin 81 mg PO DAILY 30 Days #30 tab.chew 01/06/18 [Rx] Metoprolol [Lopressor] 50 mg PO BID 30 Days #60 tablet 01/06/18 [Rx] Allergies/Adverse Reactions: 3 Allergy/AdvReac Type Severity Reaction Status Date / Time morphine Allergy Itching Verified 11/16/17 13:15 naproxen [From Aleve] Allergy Itching Verified 11/16/17 13:15 Date of admission: 01/03/18 14:18 Primary care physician: PCP ME Consults: 01/04/18 11:52 Consult to Occupational Therapy [CONS] Routine Comment: Evaluate, develop and implement POC Reason for Consult: falls; deconditioning Does patient have active BEDREST order?: No Is patient medically & hemodynamically stable?: Yes Consult to Physical Therapy [CONS] Routine Comment: Evaluate, develop and implement POC Reason for Consult: falls; deconditioning Does patient have active BEDREST order?: No Is patient medically & hemodynamically stable?: Yes 01/04/18 15:47 Consult to Human Resources Benefits Specialist [CONS] Routine Reason for SW Consult: Rehab placement, patient is a resident at [facility] and they already spoken with daughter who requests for him to go to [facility] rehab. PT/OT has seen and reccomends rehab, will discharge in the next two days likely. 01/05/18 10:34 Consult to Speech Therapy [CONS] Routine Comment: Evaluate, develop and implement POC Reason for Consult: Swallow eval Call Completed: Yes - Constitutional Vitals: Temp Pulse Resp BP Pulse Ox 97.8 F 70 18 138/80 91 01/06/18 15:58 01/06/18 15:58 01/06/18 15:58 01/06/18 15:58 01/06/18 15:58 Exam: Constitutional: No acute distress, Alert Psych: AAO x 2-3, more pleasant than yesterday HEENT: NCAT, EOMI Neck: supple, no JVD Cardio: regular rate and rhythm, +s1s2, no murmurs Resp: Coarse breath sounds Abd: soft, non tender/non distended, positive bowel sounds Extremities: no clubbing/cyanosis/edema appreciated Neuro: no focal deficits appreciated, very slow speech which is baseline - Patient Status Disposition: Transfer SNF Condition: Fair Functional capacity at discharge: uses cane/walker Overall status at discharge: patient is progressing back to baseline - Discharge Instructions Follow Up With: ANNETTE,PCP [Primary Care Provider] - 01/11/18 10:15 am - Diet and Activity Activity: as per physical therapy Diet: other (nectar thickened diet unless family signs waiver accepting aspiration risk) - VTE Reasons for not Prescribing Prophylaxis: Not indicated-Anticoagulated or INR therapeutic
== END 2018-01-06 19:00 | DRG 308 ==
LOC: SUATTDRO → EMEROOARM 02:55 → SUATTDRO 14:18 → 2NNU 14:18
PROVIDERS: ADMIT Internal Medicine; ATTEND Internal Medicine